=== PATIENT | female | born 1955 | race Caucasian/White ===

== ENCOUNTER → 2019-03-02 13:18 | Outpatient (CLI) | payer SELFPAY | PROVIDERS: PCP Family Medicine; Referring Provider Family Medicine; Visit Provider Family Medicine | DX: S91.001A Unspecified open wound, right ankle, initial encounter (principal); D70.8 Other neutropenia; D69.6 Thrombocytopenia, unspecified; K74.60 Unspecified cirrhosis of liver; Z91.120 Patient's intentional underdosing of medication regimen due to financial hardship | CPT/HCPCS: 11042; 87070; 87075; 87077; 87186; 87205; 99203; 99214 ==

== ENCOUNTER 2019-03-10 11:29 | Emergency (ER) | payer SELFPAY ==
[2019-03-10 11:41] VITALS: BP 114/71; PULSE 85; RESP 18; TEMP 37.1; O2SAT 99; BMI 19.7
[2019-03-10 12:09] VITALS: BP 125/106; PULSE 72; RESP 100; TEMP 37; O2SAT 72
--- NOTE | 2019-03-10 12:13 | ED_ITS ---
HPI - Syncope General Chief Complaint: Syncope Stated Complaint: syncopal episode Time Seen by Provider: 03/10/19 12:10 Source: patient Mode of arrival: Ambulatory Limitations: no limitations History of Present Illness HPI narrative: Patient is a 63-year-old female with history of neutropenia who presents after 2 syncopal episodes. She is currently being treated by wound care for a wound on her right leg which is multi-drug resistant. She was started on moxifloxacin 2 days ago. She says since them she passed out twice once yesterday and once today. She says today she was standing at the sink getting a glass of water she is not sure how but she woke up on the floor. She is unsure how long she was out for a long she was on the ground for. She denies any chest pain or palpitations or shortness of breath. Related Data Home Medications Medication Instructions Recorded Confirmed hydrocodone-acetaminophen 1 - 2 tab PO Q4-6H PRN 03/10/19 sulfamethoxazole-trimethoprim 1 tab PO BIDX10 03/10/19 03/10/19 Previous Rx's Medication Instructions Recorded ampicillin 500 mg PO QID #30 cap 03/10/19 rifampin 600 mg PO DAILY #7 cap 03/10/19 Allergies Allergy/AdvReac Type Severity Reaction Status Date / Time No Known Drug Allergies Allergy Verified 03/10/19 11:39 Review of Systems Review of Systems ROS Unobtainable: All systems reviewed & are unremarkable except as noted in HPI and below Constitutional Constitutional: Denies chills, Denies fever(s), Denies lethargy and Denies weakness Cardiovascular Cardiovascular: Reports as per HPI, Reports syncope, Denies dyspnea and Denies dyspnea on exertion Respiratory Respiratory: Denies cough, Denies dyspnea, Denies dyspnea on exertion and Denies wheezing Gastrointestinal Gastrointestinal: Denies abdominal pain, Denies change in bowel habits, Denies diarrhea, Denies nausea and Denies vomiting Genitourinary Genitourinary: Denies hematuria, Denies flank pain, Denies urinary incontinence and Denies urinary urgency Musculoskeletal Musculoskeletal: Denies back pain, Denies muscle weakness, Denies numbness and Denies tingling Integumentary/Breasts Skin/Breast: Reports as per HPI, Denies pruritus, Denies erythema, Denies rash and Reports wounds Neurologic Neurologic: Reports syncope, Denies numbness, Denies tingling and Denies weakness Allergic/Immunologic Allergic/Immunologic: Denies wheezing Patient History Substance Use Type: does not use Exam Initial Vital Signs Initial Vital Signs: Vital Signs Temperature 98.8 F 03/10/19 11:41 Pulse Rate 85 03/10/19 11:41 Respiratory Rate 18 03/10/19 11:41 Blood Pressure 114/71 03/10/19 11:41 Pulse Oximetry 99 03/10/19 11:41 GENERAL: Well-appearing, well-nourished and in no acute distress. HEENT: Head atraumatic,EOMI, pupils reactive, face symmetric CARDIOVASCULAR: Regular rate and rhythm without murmurs, rubs or gallops. RESPIRATORY: Breath sounds equal bilaterally, no wheezes rales or rhonchi. ABDOMEN: Soft, nontender. Normoactive bowel sounds all 4 quadrants. No guarding or rebound. EXTREMITIES: Normal range of motion, no clubbing or edema. Neurovascularly intact NEUROLOGICAL: Alert and oriented x4.Normal gait and speech. Cranial nerves II through XII grossly intact. SKIN: Wound noted on right lower leg clean bandage no significant drainage is no streaking no foul smell Course Orders Ordered: ED Orders 03/10/19 11:56 EKG-12 Lead Stat 03/10/19 12:16 Complete Blood Count AUTO DIFF Stat Comprehensive Metabolic Panel Stat Procalcitonin Stat Troponin & CK Cardiac Panel Stat Discontinued Medications Sodium Chloride (Normal Saline 0.9%) 1,000 mls @ 1,000 mls/hr IV BOLUS ONE Stop: 03/10/19 13:18 Last Infusion: 03/10/19 13:50 Dose: 0 mls/hr Documented by: Admin: 03/10/19 13:22 Dose: 1,000 mls/hr Documented by: CPRUITT Vital Signs Vital signs: Vital Signs - 8 hr 03/10/19 11:41 03/10/19 12:09 03/10/19 13:06 Temperature 98.8 F 98.6 F Pulse Rate 85 72 53 L Respiratory Rate 18 100 H 13 Blood Pressure 114/71 Blood Pressure [Right Arm] 125/106 H 138/70 Pulse Oximetry 99 72 L 100 MDM - Syncope Lab Data Attestation: I reviewed the patient's lab results. Result diagrams: 03/10/19 12:16 10/18/19 12:16 Labs: Lab Results 03/10/19 03/10/19 03/10/19 Range/Units 12:16 12:16 12:16 WBC 1.2 L* (4.5-11.0) X10^3/uL RBC 4.42 (4.0-5.2) X10^6/uL Hgb 14.1 (12.0-16.0) g/dL Hct 40.1 (36-46) % MCV 90.8 (80-100) fL MCH 32.0 (26-34) PG MCHC 35.2 (30-36) % RDW 13.9 (11.6-14.8) % Plt Count 148 L (150-400) X10^3/uL Neut % (Auto) Not Reportable Lymph % (Auto) Not Reportable [place] % (Auto) Not Reportable Eos % (Auto) Not Reportable Baso % (Auto) Not Reportable Lymph # (Auto) Not Reportable [place] # (Auto) Not Reportable Baso # (Auto) Not Reportable Total Counted 100 Seg Neutrophils % 24.0 L (38-70) % Band Neutrophils % 8.0 H (3-7) % Lymphocytes % (Manual) 52.0 H (25-45) % Atypical Lymphs % 1.0 H ( - 0) % Monocytes % (Manual) 15.0 H (2-11) % Neutrophils # (Manual) 384 L (8670-4393) /uL Plt Morphology Comment RBC Morphology Normal morphology Sodium 137 (137-145) mmol/L Potassium 3.4 (3.4-5.1) mmol/L Chloride 99 (98-107) mmol/L Carbon Dioxide 26 (22-32) mmol/L BUN 13 (7-17) mg/dL Creatinine 0.60 (0.52-1.04) mg/dL Estimated GFR > 60.0 (>60) mL/min BUN/Creatinine Ratio 21.7 (6-22) Glucose 99 (80-110) mg/dL Calcium 9.3 (8.4-10.2) mg/dL Total Bilirubin 1.0 (0.2-1.3) mg/dL AST 52 H (14-36) IU/L ALT 22 (9-52) IU/L Alkaline Phosphatase 115 (38-126) U/L Total Creatine Kinase 56 (30-135) U/L CK-MB (CK-2) TNP CK-MB (CK-2) Rel Index TNP Troponin I < 0.012 (0.01-0.034) ng/mL Total Protein 8.3 H (6.3-8.2) g/dL Albumin 4.9 (3.5-5.0) g/dL Globulin 3.4 (1.7-4.1) g/dL Albumin/Globulin Ratio 1.4 (1.0-2.8) Procalcitonin 0.05 (<0.5) ng/mL MDM Narrative Medical decision making narrative: Patient overall does not appear septic, she is neutropenic she says she is always neutropenic. She is afebrile she is negative procalcitonin the wound does not appear grossly infected. Wound cultur e from earlier does show multi-drug resistance. Due to her neutropenia she cannot be on linezolid, which would cover both. 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 Discharge Plan Departure Patient Disposition: Home Clinical Impression: Syncope Qualifiers: Syncope type: vasovagal syncope Qualified Code(s): R55 - Syncope and collapse Leg wound, right Qualifiers: Encounter type: initial encounter Qualified Code(s): S81.801A - Unspecified open wound, right lower leg, initial encounter Discharge Date/Time: 03/10/19 13:55 Instructions: DI for Syncope in Adults (Fainting) Activity Restrictions/Additional Instructions: *You have been diagnosed with syncope and right leg wound *What to do: Increase fluid intake. Passing out may be due to decreased oral intake and antibiotics. *Continue to take medications as directed Stop taking moxifloxacin Start taking ampicillin 500 mg 4 times a day for 7 days rifampin 600 mg once a day for 7 days *Follow up with your primary care provider in 2-3 days, follow up with wound care please call to schedule an appointment *Return to ER if you should have increasing redness drainage, pus, passing out chest pain heart palpitations or any new, worsening or concerning symptoms Prescriptions: New ampicillin 500 mg capsule 500 mg PO QID Qty: 30 RF: 0 rifampin 300 mg capsule 600 mg PO DAILY Qty: 7 RF: 0 No Action hydrocodone-acetaminophen 5-325 mg tablet 1 - 2 tab PO Q4-6H PRN (Reason: pain) RF: 0 sulfamethoxazole-trimethoprim 800-160 mg tablet 1 tab PO BIDX10 RF: 0 Referrals: Haim Meza MD [Physician] - Nir Dumont MD [Primary Care Provider] -
[2019-03-10 12:23] LABS: Hematocrit 40.1 % (36-46); Hemoglobin 14.1 g/dL (12.0-16.0); Mean Corpuscular HGB Conc 35.2 % (30-36); Mean Corpuscular Volume 90.8 fL (80-100); Platelet Count 148 X10^3/uL (150-400); Red Blood Cell Count 4.42 X10^6/uL (4.0-5.2); Red Cell Distribution Width 13.9 % (11.6-14.8)
[2019-03-10 12:27] LABS: Add Manual Diff / Slide Review YES; White Blood Cell Count 1.2 X10^3/uL (4.5-11.0)
[2019-03-10 12:35] LABS: Alanine Aminotransferase 22 IU/L (9-52); Albumin 4.9 g/dL (3.5-5.0); Albumin Globulin Ratio 1.4 (1.0-2.8); Alkaline Phosphatase 115 U/L (38-126); Aspartate Aminotransferase 52 IU/L (14-36); BUN Creatinine Ratio 21.7 (6-22); Blood Urea Nitrogen 13 mg/dL (7-17); Calcium 9.3 mg/dL (8.4-10.2); Carbon Dioxide 26 mmol/L (22-32); Chloride 99 mmol/L (98-107); Creatine Kinase 56 U/L (30-135); Estimated Glomerular Filt Rate > 60.0 mL/min (>60); Globulin 3.4 g/dL (1.7-4.1); Glucose 99 mg/dL (80-110); HEMOLYSIS < 15 (0-50); Potassium 3.4 mmol/L (3.4-5.1); Sodium 137 mmol/L (137-145); Total Protein 8.3 g/dL (6.3-8.2)
[2019-03-10 12:46] LABS: Troponin I < 0.012 ng/mL (0.01-0.034)
[2019-03-10 13:02] LABS: Procalcitonin 0.05 ng/mL (<0.5)
[2019-03-10 13:06] VITALS: BP 138/70; PULSE 53; RESP 13; O2SAT 100
[2019-03-10 13:20] LABS: Neutrophils Absolute Manual 384 /uL (3000-5900); RBC Morphology Normal Morphology; Total Cells Counted 100
[2019-03-10] MEDS: SODIUM CHLORIDE 0.9% 1,000 ML 1000 ML IV (13:22)
== END 2019-03-10 13:55 | disposition home or self-care (01) ==
PROVIDERS: Emergency Provider Emergency Medicine; PCP Family Medicine
DX: S81.801A Unspecified open wound, right lower leg, initial encounter (principal); R55 Syncope and collapse
CPT/HCPCS: 36415; 80053; 82550; 84145; 84484; 85025; 93005; 99283; 99284

== ENCOUNTER → 2019-03-10 13:36 | Outpatient (CLI) | payer SELFPAY | PROVIDERS: PCP Family Medicine; Visit Provider Family Medicine | CPT/HCPCS: 99213 ==

== ENCOUNTER → 2019-03-17 14:18 | Outpatient (CLI) | payer SELFPAY | PROVIDERS: PCP Family Medicine; Visit Provider Family Medicine | DX: S91.001A Unspecified open wound, right ankle, initial encounter (principal); D70.8 Other neutropenia; K74.60 Unspecified cirrhosis of liver; Z91.120 Patient's intentional underdosing of medication regimen due to financial hardship | CPT/HCPCS: 87070; 87075; 87077; 87147; 87185; 87186; 87205; 97597 ==

== ENCOUNTER → 2019-03-24 13:00 | Outpatient (CLI) | payer SELFPAY | PROVIDERS: PCP Family Medicine; Visit Provider Family Medicine | DX: S91.001A Unspecified open wound, right ankle, initial encounter (principal); D70.8 Other neutropenia; D69.6 Thrombocytopenia, unspecified; B95.2 Enterococcus as the cause of diseases classified elsewhere; K74.60 Unspecified cirrhosis of liver; L08.9 Local infection of the skin and subcutaneous tissue, unspecified; Z91.120 Patient's intentional underdosing of medication regimen due to financial hardship | CPT/HCPCS: 97597; 99213 ==

== ENCOUNTER → 2019-03-31 10:42 | Outpatient (CLI) | payer SELFPAY | PROVIDERS: PCP Family Medicine; Visit Provider Family Medicine | DX: S91.001A Unspecified open wound, right ankle, initial encounter (principal); D70.8 Other neutropenia; D69.6 Thrombocytopenia, unspecified; B95.2 Enterococcus as the cause of diseases classified elsewhere; L08.9 Local infection of the skin and subcutaneous tissue, unspecified; K74.60 Unspecified cirrhosis of liver; Z91.120 Patient's intentional underdosing of medication regimen due to financial hardship | CPT/HCPCS: 11042 ==

== ENCOUNTER → 2019-04-07 14:18 | Outpatient (CLI) | payer SELFPAY | PROVIDERS: PCP Family Medicine; Visit Provider Family Medicine | DX: S91.001A Unspecified open wound, right ankle, initial encounter (principal); D70.8 Other neutropenia; B95.2 Enterococcus as the cause of diseases classified elsewhere; L08.9 Local infection of the skin and subcutaneous tissue, unspecified; D69.6 Thrombocytopenia, unspecified; Z91.120 Patient's intentional underdosing of medication regimen due to financial hardship; K74.60 Unspecified cirrhosis of liver | CPT/HCPCS: 11104; 87070; 87075; 87077; 87102; 87116; 87186; 87205 ==

== ENCOUNTER → 2019-04-14 11:49 | Outpatient (CLI) | payer SELFPAY | PROVIDERS: PCP Family Medicine; Visit Provider Family Medicine | DX: S91.001A Unspecified open wound, right ankle, initial encounter (principal); D70.8 Other neutropenia; D69.6 Thrombocytopenia, unspecified; L08.9 Local infection of the skin and subcutaneous tissue, unspecified; B95.2 Enterococcus as the cause of diseases classified elsewhere; K74.60 Unspecified cirrhosis of liver; Z91.120 Patient's intentional underdosing of medication regimen due to financial hardship | CPT/HCPCS: 11042; 99213 ==

== ENCOUNTER → 2019-04-28 11:10 | Outpatient (CLI) | payer SELFPAY | PROVIDERS: PCP Family Medicine; Visit Provider Family Medicine | DX: S91.001A Unspecified open wound, right ankle, initial encounter (principal); D70.8 Other neutropenia; D69.6 Thrombocytopenia, unspecified; L08.9 Local infection of the skin and subcutaneous tissue, unspecified; B95.2 Enterococcus as the cause of diseases classified elsewhere; Z91.120 Patient's intentional underdosing of medication regimen due to financial hardship | CPT/HCPCS: 11042 ==

== ENCOUNTER → 2020-11-27 14:11 | Outpatient (CLI) | payer OTHER, SELFPAY ==
[2020-11-27 15:00] LABS: Hemoglobin A1C% w Est Avg Glu 5.7 % (4.0-6.0)
[2020-11-27 15:08] LABS: Hematocrit 41.4 % (36-46); Hemoglobin 14.2 g/dL (12.0-16.0); Mean Corpuscular HGB Conc 34.2 % (30-36); Mean Corpuscular Hemoglobin 32.8 PG (26-34); Mean Corpuscular Volume 95.9 fL (80-100); Platelet Count 182 X10^3/uL (150-400); Red Blood Cell Count 4.32 X10^6/uL (4.0-5.2); Red Cell Distribution Width 15.4 % (11.6-14.8)
[2020-11-27 15:54] LABS: Alanine Aminotransferase 16 IU/L (<35); Albumin 4.6 g/dL (3.5-5.0); Albumin Globulin Ratio 1.8 (1.0-2.8); Alkaline Phosphatase 60 U/L (38-126); Aspartate Aminotransferase 40 IU/L (14-36); BUN Creatinine Ratio 12.7 (6-22); Bilirubin Total 0.9 mg/dL (0.2-1.3); Blood Urea Nitrogen 8 mg/dL (7-17); Carbon Dioxide 29 mmol/L (22-32); Chloride 102 mmol/L (98-107); Estimated Glomerular Filt Rate > 60.0 mL/min (>60); Globulin 2.5 g/dL (1.7-4.1); Glucose 179 mg/dL (80-110); HEMOLYSIS 20 (0-50); Potassium 4.4 mmol/L (3.4-5.1); Sodium 138 mmol/L (137-145); Total Protein 7.1 g/dL (6.3-8.2)
[2020-11-27 16:07] LABS: Add Manual Diff / Slide Review YES; White Blood Cell Count 1.7 X10^3/uL (4.5-11.0)
[2020-11-27 16:08] LABS: Neutrophils Absolute Manual 1156 /uL (3000-5900); RBC Morphology Normal Morphology; Total Cells Counted 100
== END ==
PROVIDERS: Referring Provider Family Medicine; Visit Provider Family Medicine
DX: L88 Pyoderma gangrenosum (principal); R73.9 Hyperglycemia, unspecified
CPT/HCPCS: 36415; 80053; 83036; 85007; 85025

== ENCOUNTER → 2020-12-05 11:03 | Outpatient (CLI) | payer OTHER, SELFPAY ==
[2020-12-05 20:05] LABS: Hemoglobin A1C% w Est Avg Glu 5.5 % (4.0-6.0)
[2020-12-05 20:24] LABS: BUN Creatinine Ratio 15.8 (6-22); Blood Urea Nitrogen 9 mg/dL (7-17); Calcium 9.4 mg/dL (8.4-10.2); Carbon Dioxide 26 mmol/L (22-32); Chloride 105 mmol/L (98-107); Estimated Glomerular Filt Rate > 60.0 mL/min (>60); Glucose 120 mg/dL (80-110); HEMOLYSIS < 15 (0-50); Potassium 4.2 mmol/L (3.4-5.1); Sodium 138 mmol/L (137-145)
== END ==
PROVIDERS: PCP Family Medicine; Visit Provider Family Medicine
DX: R73.9 Hyperglycemia, unspecified (principal)
CPT/HCPCS: 80048; 83036

== ENCOUNTER → 2020-12-10 11:30 | Outpatient (CLI) | payer OTHER, SELFPAY ==
[2020-12-10 20:21] LABS: COVID19 - ORCAS (NP or Nasal) Negative (Negative)
== END ==
PROVIDERS: PCP Family Medicine; Visit Provider Family Medicine
DX: Z20.822 Contact with and (suspected) exposure to COVID-19 (principal)
CPT/HCPCS: U0003

== ENCOUNTER → 2021-01-02 10:51 | Outpatient (CLI) | payer OTHER, SELFPAY ==
[2021-01-02 20:32] LABS: COVID19 - ORCAS (NP or Nasal) Negative (Negative)
== END ==
PROVIDERS: PCP Family Medicine; Visit Provider Family Medicine
DX: Z20.822 Contact with and (suspected) exposure to COVID-19 (principal); J02.9 Acute pharyngitis, unspecified
CPT/HCPCS: U0003

== ENCOUNTER → 2021-02-07 09:34 | Outpatient (CLI) | payer OTHER, SELFPAY ==
[2021-02-07 20:09] LABS: Appearance Urine UA CLEAR; Bilirubin Urine UA NEGATIVE (NEGATIVE); Color Urine UA YELLOW; Glucose Urine UA NEGATIVE (Negative); Ketones Urine UA NEGATIVE (NEGATIVE); Leukocyte Esterase Urine UA NEGATIVE (NEGATIVE); Nitrite Urine UA NEGATIVE (Negative); Occult Blood Urine UA NEGATIVE (Negative); Protein Urine UA NEGATIVE (Negative)
[2021-02-07 20:12] LABS: pH Urine UA 7.5 (4.5-8.0)
[2021-02-07 20:14] LABS: RBC Urine None Seen (0-5/HPF)
[2021-02-07 20:15] LABS: Bacteria Urine None Seen; Culture Indicated Urine Cult Not Indicated; Squamous Epithelial Cell Urine 0-1 /HPF (0-5/HPF); WBC Urine 0-1/HPF (0-5/HPF)
[2021-02-07 20:16] LABS: Hematocrit 40.7 % (36-46); Hemoglobin 13.7 g/dL (12.0-16.0); Mean Corpuscular HGB Conc 33.6 % (30-36); Mean Corpuscular Hemoglobin 30.8 PG (26-34); Mean Corpuscular Volume 91.6 fL (80-100); Platelet Count 191 X10^3/uL (150-400); Red Blood Cell Count 4.45 X10^6/uL (4.0-5.2)
[2021-02-07 20:20] LABS: Alanine Aminotransferase 14 IU/L (<35); Albumin 4.2 g/dL (3.5-5.0); Albumin Globulin Ratio 1.8 (1.0-2.8); Alkaline Phosphatase 91 U/L (38-126); Aspartate Aminotransferase 35 IU/L (14-36); BUN Creatinine Ratio 20.4 (6-22); Bilirubin Total 0.8 mg/dL (0.2-1.3); Blood Urea Nitrogen 11 mg/dL (7-17); Calcium 9.1 mg/dL (8.4-10.2); Carbon Dioxide 28 mmol/L (22-32); Chloride 105 mmol/L (98-107); Estimated Glomerular Filt Rate > 60.0 mL/min (>60); Globulin 2.4 g/dL (1.7-4.1); Glucose 111 mg/dL (80-110); HEMOLYSIS < 15 (0-50); Potassium 4.4 mmol/L (3.4-5.1); Sodium 139 mmol/L (137-145); Total Protein 6.6 g/dL (6.3-8.2)
[2021-02-07 20:43] LABS: Erythrocyte Sedimentation Rate 10 MM/HR (0-20)
[2021-02-07 22:07] LABS: Add Manual Diff / Slide Review YES; White Blood Cell Count 1.7 X10^3/uL (4.5-11.0)
[2021-02-07 22:10] LABS: Neutrophils Absolute Manual 374 /uL (3000-5900); RBC Morphology Normal Morphology; Total Cells Counted 100
== END ==
PROVIDERS: PCP Family Medicine; Visit Provider Family Medicine
DX: M54.6 Pain in thoracic spine (principal)
CPT/HCPCS: 80053; 81001; 85007; 85025; 85651

== ENCOUNTER → 2021-02-20 08:52 | Outpatient (CLI) | payer OTHER, SELFPAY ==
[2021-02-20 09:36] LABS: COVID19 -Nasal RAPID Negative (Negative)
== END ==
PROVIDERS: PCP Family Medicine; Referring Provider Internal Medicine; Visit Provider Internal Medicine
DX: Z01.812 Encounter for preprocedural laboratory examination (principal); Z20.822 Contact with and (suspected) exposure to COVID-19
CPT/HCPCS: 87635; C9803

== ENCOUNTER → 2021-02-20 08:55 | Outpatient (CLI) | payer OTHER, SELFPAY ==
--- NOTE | 2021-02-26 09:48 | PM.PFT.1 ---
Pulmonary Function Test Referral & Results Date Patient Seen: 02/20/21 Requesting provider: Yassine Cook Results: The spirometry demonstrates an FVC of 2.65 L which is 68% of predicted. The FEV1 was measured at 2.05 L which is 69% of predicted. The FEV1/FVC ratio was 77 which is 100% of predicted. Following the administration of bronchodilator there was no appreciable change Lung volumes show an SVC of 2.65 L which is 75% of predicted. The diffusing capacity was measured at 19.60 which is 63% of predicted. No hemoglobin value was provided, so no correction for potential anemia could be made, if appropriate. The maximum voluntary ventilation was reduced Interpretation: This study demonstrates slight reduction in FEV1 suggesting the possibility of minimal obstructive lung disease although FEV1/FVC ratio is normal and there is no evidence of benefit following bronchodilator There is also a slight/mild reduction of SVC suggesting the presence of minimal restrictive lung disease which may explain the abnormality in FEV1 above. There is a more significant reduction diffusing capacity suggesting disease at the capillary alveolar level Clinical correlation suggested
== END ==
PROVIDERS: PCP Family Medicine; Referring Provider Family Medicine; Visit Provider Family Medicine
DX: J98.8 Other specified respiratory disorders (principal); T73.3XXA Exhaustion due to excessive exertion, initial encounter
CPT/HCPCS: 94060; 94726; 94729

== ENCOUNTER → 2021-02-20 12:26 | Outpatient (CLI) | payer OTHER, SELFPAY ==
--- NOTE | 2021-02-20 12:35 | DI.CT.S_ITS ---
PROCEDURE: CT ANGIO CHEST INDICATIONS: Past history of recent pulmonary embolism, remains with SOB TECHNIQUE: After the administration of intravenous contrast, 2 mm thick sections acquired from the pulmonary apices to the posterior costophrenic angles. Maximum intensity projection (MIP) coronal and sagittal reformats were then acquired through the thorax. For radiation dose reduction, the following was used: automated exposure control, adjustment of mA and/or kV according to patient size. COMPARISON: None. FINDINGS: Image quality: Excellent. Pulmonary arteries: Pulmonary arteries are normal in size, and demonstrate no intraluminal filling defects to suggest central pulmonary embolism. Lungs and pleura: Lungs are clear. No pleural effusions or pneumothorax. Central and peripheral airways are patent. Mediastinum: Heart size is normal, without pericardial effusion. No mediastinal or hilar adenopathy. Thoracic aorta is normal in caliber and enhancement. Esophagus is normal in caliber, without hiatal hernia. Bones and chest wall: No suspicious bony lesions. Ribs and thoracic spine appear intact throughout. Thyroid gland unremarkable. No axillary or supraclavicular adenopathy. Abdomen: Visualized upper abdominal solid organs appear normal in the early arterial phase of enhancement. IMPRESSION: Unremarkable CT angiogram of the chest without evidence of pulmonary embolism, aortic dissection or aneurysm. Approved by: Frankie Arita M.D. on 02/20/2021 at 12:33
== END ==
PROVIDERS: PCP Family Medicine; Referring Provider Family Medicine; Visit Provider Family Medicine
DX: I27.82 Chronic pulmonary embolism (principal); E88.01 Alpha-1-antitrypsin deficiency; R06.00 Dyspnea, unspecified; R06.02 Shortness of breath; Z20.822 Contact with and (suspected) exposure to COVID-19; Z01.812 Encounter for preprocedural laboratory examination; T73.3XXA Exhaustion due to excessive exertion, initial encounter
CPT/HCPCS: 71275; 87635; 94060; 94726; 94729; C9803

== ENCOUNTER 2021-03-01 10:53 | Emergency (ER) | payer OTHER, SELFPAY ==
[2021-03-01 11:32] VITALS: PULSE 69; RESP 18; O2SAT 97
[2021-03-01 11:33] VITALS: BP 140/93; PULSE 69; RESP 18; TEMP 37; O2SAT 97
[2021-03-01 12:39] LABS: Add Manual Diff / Slide Review NO; Basophils Absolute Auto 0 /uL (0-100); Basophils Percent Auto 0.4 % (0-2); Eosinophils Absolute Auto 0 /uL (0-450); Hematocrit 42.1 % (36-46); Hemoglobin 14.4 g/dL (12.0-16.0); Lymphocytes Absolute Auto 800 /uL (1100-4500); Lymphocytes Percent Auto 40.9 % (25-40); Mean Corpuscular HGB Conc 34.2 % (30-36); Mean Corpuscular Hemoglobin 31.4 PG (26-34); Mean Corpuscular Volume 91.8 fL (80-100); Monocytes Absolute Auto 300 /uL (0-900); Monocytes Percent Auto 16.5 % (3-14); Neutrophils Absolute Auto 800 /uL (1500-7000); Neutrophils Percent Auto 42.2 % (50-75); Platelet Count 135 X10^3/uL (150-400); Red Blood Cell Count 4.58 X10^6/uL (4.0-5.2); Red Cell Distribution Width 14.9 % (11.6-14.8)
[2021-03-01 12:46] LABS: Alanine Aminotransferase 13 IU/L (<35); Albumin 4.8 g/dL (3.5-5.0); Albumin Globulin Ratio 1.8 (1.0-2.8); Alkaline Phosphatase 81 U/L (38-126); Aspartate Aminotransferase 35 IU/L (14-36); BUN Creatinine Ratio 15.7 (6-22); Blood Urea Nitrogen 8 mg/dL (7-17); Calcium 9.5 mg/dL (8.4-10.2); Carbon Dioxide 29 mmol/L (22-32); Chloride 103 mmol/L (98-107); Estimated Glomerular Filt Rate > 60.0 mL/min (>60); Globulin 2.6 g/dL (1.7-4.1); Glucose 123 mg/dL (80-110); HEMOLYSIS < 15 (0-50); Lactate (Lactic Acid) 0.8 mmol/L (0.7-2.1); Lipase 68 U/L (23-300); Sodium 138 mmol/L (137-145); Total Protein 7.4 g/dL (6.3-8.2)
--- NOTE | 2021-03-01 12:57 | ED.ABDPAIN ---
HPI - Abdominal Pain <Angel Gutierrez PA-C - Last Filed: 03/01/21 14:15> General Chief Complaint: Abdominal Pain Stated Complaint: Stomach pain x a week Time Seen by Provider: 03/01/21 12:00 Source: patient and family Mode of arrival: Ambulatory History of Present Illness HPI narrative: Kathy presents today with chief complaint of epigastric abdominal pain, cough, a.m. vomiting. She reports that she has been experiencing these symptoms for many months. Over the last week she has had increased frequency of her vomiting, loose stool, worsening cough. She was tested for COVID 2 weeks ago and that came back negative. She is not vaccinated at this time because she has been on immunosuppressive so for pyoderma gangrenosum. She is currently tapering down her prednisone and mycophenolate through her workcell operator at to help with the side effects. She reports that she has also been having an acidic taste in her throat and is concerned that she may either have lymphoma or a stomach ulcer. She denies any significant chest pain, fever, exertional dyspnea, increased difficulty breathing, or any other acute concerns or complaints at this time. Related Data Home Medications Medication Instructions Recorded Confirmed brimonidine 0.1 % eye drops drp OPHTHALMIC (EYE) DAILY ml 12/10/20 02/13/21 (Alphagan P) brimonidine 0.2 %-timolol 0.5 % drp OPHTHALMIC (EYE) BID ml 12/10/20 02/13/21 eye drops (Combigan) mycophenolate mofetil 500 mg tablet 500 mg PO BID 01/30/21 02/13/21 prednisone 1 mg tablet See Rx Instructions .ROUTE .COMPLEX 01/30/21 02/13/21 rivaroxaban 20 mg tablet (Xarelto) 20 mg PO DAILY 01/30/21 02/13/21 Previous Rx's Medication Instructions Recorded amoxicillin 875 mg-potassium 1 tab PO BID #10 tab 01/30/21 clavulanate 125 mg tablet (Augmentin) hydrocodone 5 mg-acetaminophen 325 1 tab PO TID PRN #30 tab 02/07/21 mg tablet methocarbamol 500 mg tablet 500 mg PO TID PRN #30 tab 02/07/21 Allergies Allergy/AdvReac Type Severity Reaction Status Date / Time silicone Allergy Mild Verified 02/13/21 15:05 latex AdvReac Intermediate Verified 02/13/21 15:05 Review of Systems <Angel Gutierrez PA-C - Last Filed: 03/01/21 14:15> Review of Systems Narrative: As per HPI Patient History <Angel Gutierrez PA-C - Last Filed: 03/01/21 14:15> Medical History (Updated 03/01/21 @ 13:06 by Angel Gutierrez PA-C) Dog bite Family history of colon cancer Family history of diabetes mellitus (DM) Neutropenia, unspecified Sore throat Thoracic back pain Surgical History (Updated 11/07/20 @ 19:43 by Rossi Ch) Anesthesia History of bone marrow biopsy History of surgery (~2019) S/P cholecystectomy (~2005) Family History (Updated 11/07/20 @ 19:43 by Rossi Ch) Mother Cancer Social History Smoking Status: Never smoker Smoking Status: Never smoker Substance Use Type: does not use Exam <Angel Gutierrez PA-C - Last Filed: 03/01/21 14:15> Narrative Exam Narrative: Exam Narrative: Const General: cooperative, healthy appearing, comfortable, no acute distress, well developed and well groomed Nutritional Appearance: average body habitus Orientation: alert and oriented x3 HENMT Head: normal to inspection and atraumatic Ears: hearing grossly normal bilaterally Nose: external nose normal and nares normal Face and sinus: normal facial exam Neck Neck: normal visual inspection and supple Resp Effort & Inspection: normal respiratory effort, able to speak in complete sentences, no audible wheezes, not labored, no nasal flaring and no respiratory distress, clear to auscultation bilaterally Cardiac Regular rate and rhythm, no discernible murmurs, rubs or gallops GI Nondistended, positive epigastric tenderness, negative Graff sign, no guarding, no rebound tenderness. Neuro General: alert, oriented x3, gait normal, tone normal and moves all extremities Cognition: normal cognition Speech: speech normal Gait: normal gait Psych Appearance: grossly normal and well kempt Mental Status: mental status grossly normal Speech and Movement: speech and movement normal Mood: Anxious mood Affect: normal affect Initial Vital Signs Initial Vital Signs: Vital Signs Pulse Rate 69 03/01/21 11:32 Respiratory Rate 18 03/01/21 11:32 Pulse Oximetry 97 03/01/21 11:32 <Charlene Lopez DO - Last Filed: 03/06/21 00:30> Initial Vital Signs Initial Vital Signs: Vital Signs Pulse Rate 69 03/01/21 11:32 Respiratory Rate 18 03/01/21 11:32 Pulse Oximetry 97 03/01/21 11:32 Course <Angel Gutierrez PA-C - Last Filed: 03/01/21 14:15> Course Course Narrative: Patient is adamant that she needs an ultrasound to diagnose a stomach ulcer. I explained that we do not use this imaging modality to diagnose stomach ulcers. Her physical examination and symptoms are consistent with acid reflux and possibly gastric ulcer. If symptoms continue then endoscopy may be needed. Orders Ordered: Discontinued Medications Pantoprazole Sodium (Pantoprazole 40 Mg Vial) 40 mg IV NOW ONE Stop: 03/01/21 12:57 Last Admin: 03/01/21 13:02 Dose: 40 mg Documented by: BARAK Vital Signs Vital signs: Vital Signs - 8 hr 03/01/21 11:32 03/01/21 11:33 Temperature 98.6 F Pulse Rate 69 69 Respiratory Rate 18 18 Blood Pressure [Right Arm] 140/93 H Pulse Oximetry 97 97 <Charlene Lopez DO - Last Filed: 03/06/21 00:30> Orders Ordered: Discontinued Medications Pantoprazole Sodium (Pantoprazole 40 Mg Vial) 40 mg IV NOW ONE Stop: 03/01/21 12:57 Last Admin: 03/01/21 13:02 Dose: 40 mg Documented by: BARAK Vital Signs Vital signs: Vital Signs - 8 hr 03/01/21 11:32 03/01/21 11:33 Temperature 98.6 F Pulse Rate 69 69 Respiratory Rate 18 18 Blood Pressure [Right Arm] 140/93 H Pulse Oximetry 97 97 MDM - Abdominal Pain <SHERYL Hatch Last Filed: 03/01/21 14:15> Lab Data Result diagrams: 03/01/21 12:30 03/01/21 12:30 Labs: Lab Results 03/01/21 03/01/21 03/01/21 Range/Units 12:30 12:30 12:30 WBC 2.0 L (4.5-11.0) X10^3/uL RBC 4.58 (4.0-5.2) X10^6/uL Hgb 14.4 (12.0-16.0) g/dL Hct 42.1 (36-46) % MCV 91.8 (80-100) fL MCH 31.4 (26-34) PG MCHC 34.2 (30-36) % RDW 14.9 H (11.6-14.8) % Plt Count 135 L (150-400) X10^3/uL Neut % (Auto) 42.2 L (50-75) % Lymph % (Auto) 40.9 H (25-40) % [place] % (Auto) 16.5 H (3-14) % Eos % (Auto) 0.0 L (2-4) % Baso % (Auto) 0.4 (0-2) % Neut # (Auto) 800 L (4829-6232) /uL Lymph # (Auto) 800 L (3645-3175) /uL [place] # (Auto) 300 (0-900) /uL Eos # (Auto) 0 (0-450) /uL Baso # (Auto) 0 (0-100) /uL Sodium 138 (137-145) mmol/L Potassium 4.0 (3.4-5.1) mmol/L Chloride 103 (98-107) mmol/L Carbon Dioxide 29 (22-32) mmol/L BUN 8 (7-17) mg/dL Creatinine 0.51 L (0.52-1.04) mg/dL Estimated GFR > 60.0 (>60) mL/min BUN/Creatinine Ratio 15.7 (6-22) Glucose 123 H (80-110) mg/dL Lactate 0.8 (0.7-2.1) mmol/L Calcium 9.5 (8.4-10.2) mg/dL Total Bilirubin 1.0 (0.2-1.3) mg/dL AST 35 (14-36) IU/L ALT 13 (<35) IU/L Alkaline Phosphatase 81 (38-126) U/L Total Protein 7.4 (6.3-8.2) g/dL Albumin 4.8 (3.5-5.0) g/dL Globulin 2.6 (1.7-4.1) g/dL Albumin/Globulin Ratio 1.8 (1.0-2.8) Lipase 68 (23-300) U/L Procalcitonin (<0.5) ng/mL SARS-CoV-2 (PCR) (Negative) 03/01/21 03/01/21 Range/Units 12:30 12:55 WBC (4.5-11.0) X10^3/uL RBC (4.0-5.2) X10^6/uL Hgb (12.0-16.0) g/dL Hct (36-46) % MCV (80-100) fL MCH (26-34) PG MCHC (30-36) % RDW (11.6-14.8) % Plt Count (150-400) X10^3/uL Neut % (Auto) (50-75) % Lymph % (Auto) (25-40) % [place] % (Auto) (3-14) % Eos % (Auto) (2-4) % Baso % (Auto) (0-2) % Neut # (Auto) (3943-8514) /uL Lymph # (Auto) (4864-2082) /uL [place] # (Auto) (0-900) /uL Eos # (Auto) (0-450) /uL Baso # (Auto) (0-100) /uL Sodium (137-145) mmol/L Potassium (3.4-5.1) mmol/L Chloride (98-107) mmol/L Carbon Dioxide (22-32) mmol/L BUN (7-17) mg/dL Creatinine (0.52-1.04) mg/dL Estimated GFR (>60) mL/min BUN/Creatinine Ratio (6-22) Glucose (80-110) mg/dL Lactate (0.7-2.1) mmol/L Calcium (8.4-10.2) mg/dL Total Bilirubin (0.2-1.3) mg/dL AST (14-36) IU/L ALT (<35) IU/L Alkaline Phosphatase (38-126) U/L Total Protein (6.3-8.2) g/dL Albumin (3.5-5.0) g/dL Globulin (1.7-4.1) g/dL Albumin/Globulin Ratio (1.0-2.8) Lipase (23-300) U/L Procalcitonin 0.07 (<0.5) ng/mL SARS-CoV-2 (PCR) Negative (Negative) Point of care testing: Urine Dip Bedside Urine Glucose Negative Bedside Urine Bilirubin - Negative Bedside Urine Ketone - Negative Urine Specific [place] 1.015 Bedside Urine Occult Blood - Negative Bedside Urine pH 6.5 Bedside Urine Protein - Negative Bedside Urine Urobilinogen - Negative Bedside Urine Nitrite - Negative Bedside Urine Leukocytes - Negative Esterase MDM Narrative Medical decision making narrative: Patient is overall well-appearing at this time and has reassuring labs that are consistent with her known medical conditions. Because her mycophenolate blood levels can be slightly reduced with PPI therapy, no prescription was given at this time. However, this is something that she should discuss with her PCP and workcell operator. I considered ACS or pulmonary problem but patient is not interested in getting an EKG or x-ray at this time. I recommended a more thorough evaluation but patient was needing to leave to catch a ferry so she can get back home and is refusing further care. History and physical examination does not suggest an acute life-threatening process at this time. However, strict ER return precautions were discussed with the patient. Patient verbalizes understanding and agrees to plan and has no further concerns at this time. Thank you A [id number] system was used with the dictation of this note. Please disregard any spelling or grammatical errors. <Charlene Lopez, DO - Last Filed: 03/06/21 00:30> Lab Data Labs: Lab Results 03/01/21 03/01/21 03/01/21 Range/Units 12:30 12:30 12:30 WBC 2.0 L (4.5-11.0) X10^3/uL RBC 4.58 (4.0-5.2) X10^6/uL Hgb 14.4 (12.0-16.0) g/dL Hct 42.1 (36-46) % MCV 91.8 (80-100) fL MCH 31.4 (26-34) PG MCHC 34.2 (30-36) % RDW 14.9 H (11.6-14.8) % Plt Count 135 L (150-400) X10^3/uL Neut % (Auto) 42.2 L (50-75) % Lymph % (Auto) 40.9 H (25-40) % [place] % (Auto) 16.5 H (3-14) % Eos % (Auto) 0.0 L (2-4) % Baso % (Auto) 0.4 (0-2) % Neut # (Auto) 800 L (7692-1553) /uL Lymph # (Auto) 800 L (7994-5897) /uL [place] # (Auto) 300 (0-900) /uL Eos # (Auto) 0 (0-450) /uL Baso # (Auto) 0 (0-100) /uL Sodium 138 (137-145) mmol/L Potassium 4.0 (3.4-5.1) mmol/L Chloride 103 (98-107) mmol/L Carbon Dioxide 29 (22-32) mmol/L BUN 8 (7-17) mg/dL Creatinine 0.51 L (0.52-1.04) mg/dL Estimated GFR > 60.0 (>60) mL/min BUN/Creatinine Ratio 15.7 (6-22) Glucose 123 H (80-110) mg/dL Lactate 0.8 (0.7-2.1) mmol/L Calcium 9.5 (8.4-10.2) mg/dL Total Bilirubin 1.0 (0.2-1.3) mg/dL AST 35 (14-36) IU/L ALT 13 (<35) IU/L Alkaline Phosphatase 81 (38-126) U/L Total Protein 7.4 (6.3-8.2) g/dL Albumin 4.8 (3.5-5.0) g/dL Globulin 2.6 (1.7-4.1) g/dL Albumin/Globulin Ratio 1.8 (1.0-2.8) Lipase 68 (23-300) U/L Procalcitonin (<0.5) ng/mL SARS-CoV-2 (PCR) (Negative) 03/01/21 03/01/21 Range/Units 12:30 12:55 WBC (4.5-11.0) X10^3/uL RBC (4.0-5.2) X10^6/uL Hgb (12.0-16.0) g/dL Hct (36-46) % MCV (80-100) fL MCH (26-34) PG MCHC (30-36) % RDW (11.6-14.8) % Plt Count (150-400) X10^3/uL Neut % (Auto) (50-75) % Lymph % (Auto) (25-40) % [place] % (Auto) (3-14) % Eos % (Auto) (2-4) % Baso % (Auto) (0-2) % Neut # (Auto) (3242-5127) /uL Lymph # (Auto) (0895-7640) /uL [place] # (Auto) (0-900) /uL Eos # (Auto) (0-450) /uL Baso # (Auto) (0-100) /uL Sodium (137-145) mmol/L Potassium (3.4-5.1) mmol/L Chloride (98-107) mmol/L Carbon Dioxide (22-32) mmol/L BUN (7-17) mg/dL Creatinine (0.52-1.04) mg/dL Estimated GFR (>60) mL/min BUN/Creatinine Ratio (6-22) Glucose (80-110) mg/dL Lactate (0.7-2.1) mmol/L Calcium (8.4-10.2) mg/dL Total Bilirubin (0.2-1.3) mg/dL AST (14-36) IU/L ALT (<35) IU/L Alkaline Phosphatase (38-126) U/L Total Protein (6.3-8.2) g/dL Albumin (3.5-5.0) g/dL Globulin (1.7-4.1) g/dL Albumin/Globulin Ratio (1.0-2.8) Lipase (23-300) U/L Procalcitonin 0.07 (<0.5) ng/mL SARS-CoV-2 (PCR) Negative (Negative) Point of care testing: Urine Dip Bedside Urine Glucose Negative Bedside Urine Bilirubin - Negative Bedside Urine Ketone - Negative Urine Specific [place] 1.015 Bedside Urine Occult Blood - Negative Bedside Urine pH 6.5 Bedside Urine Protein - Negative Bedside Urine Urobilinogen - Negative Bedside Urine Nitrite - Negative Bedside Urine Leukocytes - Negative Esterase Discharge Plan Departure Patient Disposition: Home Clinical Impression: Abdominal pain, epigastric Instructions: DI for Epigastric Pain Activity Restrictions/Additional Instructions: It was nice to meet you this afternoon. Your laboratory work was reassuring at this time. Please call your PCP and see if there is some medication that you can take to treat a possible stomach ulcer. The PPI therapy can potentially decrease the effectiveness of your mycophenolate so please discuss that with your workcell operator also. If you experience any significant worsening symptoms do not hesitate return to the emergency department. Thank you Angel Gutierrez PA-C Prescriptions: No Action Alphagan P 0.1 % drops ophthalmic (eye) DAILY RF: 0 Combigan 0.2-0.5 % drops ophthalmic (eye) BID RF: 0 hydrocodone-acetaminophen 5-325 mg tablet 1 tab PO TID PRN (Reason: pain) Qty: 30 RF: 0 methocarbamol 500 mg tablet 500 mg PO TID PRN (Reason: Muscle strain) Qty: 30 RF: 0 mycophenolate mofetil 500 mg tablet 500 mg PO BID RF: 0 Xarelto 20 mg tablet 20 mg PO DAILY RF: 0 prednisone 1 mg tablet See Rx Instructions .ROUTE .COMPLEX RF: 0 amoxicillin-pot clavulanate [Augmentin] 875-125 mg tablet 1 tab PO BID Qty: 10 RF: 0 Referrals: Yassine Cook DO [Primary Care Provider] - <Charlene Lopez DO - Last Filed: 03/06/21 00:30> Cosign ED Attending Germanature Attestation: I was immediately available in the department for consultation. Documentation has been reviewed.
[2021-03-01] MEDS: PANTOPRAZOLE 40 MG VIAL IV (13:02)
[2021-03-01 13:03] LABS: Procalcitonin 0.07 ng/mL (<0.5)
--- NOTE | 2021-03-01 13:06 | PC.NURSE ---
Patient declined nursing assessment and asked to be discharged after speaking to provider. Notified provider.
[2021-03-01 13:42] LABS: COVID19 -Nasal RAPID Negative (Negative)
== END 2021-03-01 13:42 | disposition home or self-care (01) ==
PROVIDERS: Emergency Medicine; Emergency Provider Physician Assistant; PCP Family Medicine
DX: R10.13 Epigastric pain (principal); Z20.822 Contact with and (suspected) exposure to COVID-19
CPT/HCPCS: 80053; 81003; 83605; 83690; 84145; 85025; 87635; 96374; 99283; 99284; C9803; C9113

== ENCOUNTER → 2021-03-28 08:10 | Outpatient (CLI) | payer OTHER, SELFPAY ==
[2021-03-28 19:33] LABS: Hematocrit 39.8 % (36-46); Hemoglobin 13.8 g/dL (12.0-16.0); Mean Corpuscular HGB Conc 34.7 % (30-36); Mean Corpuscular Hemoglobin 31.6 PG (26-34); Mean Corpuscular Volume 91.2 fL (80-100); Platelet Count 203 X10^3/uL (150-400); Red Blood Cell Count 4.36 X10^6/uL (4.0-5.2); Red Cell Distribution Width 14.9 % (11.6-14.8)
[2021-03-28 19:41] LABS: Alanine Aminotransferase 13 IU/L (<35); Albumin Globulin Ratio 1.6 (1.0-2.8); Alkaline Phosphatase 105 U/L (38-126); Aspartate Aminotransferase 33 IU/L (14-36); BUN Creatinine Ratio 18.2 (6-22); Bilirubin Total 0.5 mg/dL (0.2-1.3); Blood Urea Nitrogen 10 mg/dL (7-17); Calcium 9.7 mg/dL (8.4-10.2); Carbon Dioxide 29 mmol/L (22-32); Chloride 102 mmol/L (98-107); Estimated Glomerular Filt Rate > 60.0 mL/min (>60); Globulin 2.5 g/dL (1.7-4.1); Glucose 174 mg/dL (80-110); HEMOLYSIS < 15 (0-50); Potassium 4.5 mmol/L (3.4-5.1); Sodium 138 mmol/L (137-145); Total Protein 6.5 g/dL (6.3-8.2)
[2021-03-28 20:27] LABS: Add Manual Diff / Slide Review YES
[2021-03-28 20:34] LABS: Neutrophils Absolute Manual 368 /uL (3000-5900); Total Cells Counted 100
[2021-03-28 20:35] LABS: RBC Morphology Normal Morphology
[2021-03-28 20:35] LABS: COVID19 - ORCAS (NP or Nasal) Negative (Negative)
[2021-03-28 20:43] LABS: White Blood Cell Count 1.6 X10^3/uL (4.5-11.0)
== END ==
PROVIDERS: Pathology Hematology; PCP Family Medicine; Visit Provider Physician Assistant Medical
DX: Z20.822 Contact with and (suspected) exposure to COVID-19 (principal); D70.9 Neutropenia, unspecified
CPT/HCPCS: 80053; 85007; 85025; U0003

== ENCOUNTER → 2021-04-22 09:09 | Outpatient (CLI) | payer OTHER, SELFPAY ==
--- NOTE | 2021-04-22 09:10 | DI.ECHO.S_ITS ---
[facility]---------+ [facility] +---------+ : : [address] : : : : [id number] : : : : Phone: [phone]+ Echocardiogram Report + + :Name: BRADEN AYOUB Study Date: 04/22/2021 Height: 70 in : :[facility] ReadingLocation: Weight: 140 lb : : Gender: Female BSA: 1.8 m2 : :: 1955 Age: 65 yrs BP: 152/90 mmHg: :Reason For Study: EXERTIONAL FATIGUE, DYSPNEA, SHORTNESS OF : :BREATH : :Ordering Physician: LES, : :MALLORY Performed By: Mine Beltran : :Referring: LLUVIA SMITH : + + Interpretation Summary 1) Normal left ventricular thickness, size, wall motion, and systolic function (EF 60-65%). 2) Normal right ventricular size and function. 3) No significant valvular abnormalities. 4) The right ventricular systolic pressure is estimated to be at least 24 mmHg based on an estimated right atrial pressure of 3 mm Hg. 5) No prior Echo available for comparison. Procedure: A two-dimensional transthoracic echocardiogram with color flow and Doppler was performed. The study quality was technically adequate. There is no prior echocardiogram noted for this patient. The patient was in sinus rhythm with heart rates between 64-75 bpm during the exam. Left Ventricle: The left ventricle is normal in size and wall thickness. The ejection fraction is estimated to be 60-65%. Left ventricular systolic function appears normal without focal wall motion abnormalities. Diastolic parameters suggest a relaxation abnormality of the left ventricle, consistent with probable normal filling pressures. Right Ventricle: The right ventricle is normal in size and function. Atria: Both atria are normal in size. There is no Doppler evidence for an interatrial shunt. Mitral Valve: The mitral valve is normal in structure and function. There is mild mitral regurgitation. Aortic Valve: The aortic valve is slightly calcified. The aortic valve is trileaflet. There is no aortic valve stenosis. There is trace aortic regurgitation. Tricuspid Valve: The tricuspid valve is normal in structure and function. There is mild tricuspid regurgitation. The right ventricular systolic pressure is estimated to be at least 24 mmHg based on an estimated right atrial pressure of 3 mm Hg. Pulmonic Valve: The pulmonic valve is not well seen, but is grossly normal. There is trace pulmonic regurgitation. Great Vessels: The aortic root is normal size. The ascending aorta is at the upper limits of normal in size. The IVC is of normal diameter and collapses greater than 50% with a sniff. This suggests a low right atrial pressure of 3 mm Hg. Pericardium/ Pleura There is no pericardial effusion. There is no pleural effusion. MMode/2D Measurements & Calculations LVIDd: 4.4 cm LVOT diam: 2.0 cm LVIDs: 2.7 cm Ao root diam: 3.6 cm FS: 37.4 % asc Aorta Diam: 3.5 cm IVSd: 0.55 cm Ao Arch Diam (Prox Trans): 2.3 cm LVPWd: 0.64 cm LV ledesma. diameter/BSA (cm/m^2): 2.4 LV sys. diameter/BSA (cm/m^2): 1.5 LA A2 area: 18.4 cm2 RA long axis: 4.8 cm LA A4 area: 16.1 cm2 RA area: 15.6 cm2 LA length (vol): 5.2 cm RA vol: 43.3 ml LA vol: 48.6 ml RA : 24.1 ml/m2 LA vol index: 27.1 ml/m2 IVC diam: 1.7 cm RVD1 (basal): 2.4 cm TAPSE: 1.8 cm Doppler Measurements & Calculations Ao V2 max: 141.0 cm/sec LVOT Max Edgar: 96.0 cm/sec Ao V2 mean: 101.4 cm/sec LV V1 max P.7 mmHg Ao max P.0 mmHg LV V1 VTI: 20.8 cm Ao mean P.6 mmHg SHAVON(I,D): 2.0 cm2 Ao V2 VTI: 32.0 cm SHAVON(V,D): 2.1 cm2 sev ratio: 0.65 SHAVON indexed to BSA (cm^2/m^2): 1.1 MV E max edgar: 68.9 cm/sec TR max edagr: 233.6 cm/sec MV A max edgar: 85.1 cm/sec TR max P.8 mmHg MV E/A: 0.81 PA V2 max: 93.9 cm/sec Med Peak E' Edgar: 5.9 cm/sec PA V2 mean: 65.5 cm/sec E/E' med: 11.7 PA mean P.9 mmHg Lat Peak E' Edgar: 8.1 cm/sec PA pr(Accel): 12.2 mmHg E/E' lat: 8.5 E/e' average: 10.1 MV dec time: 0.25 sec SV(LVOT): 64.3 ml Reading Physician:10:57 AM
== END ==
PROVIDERS: PCP Family Medicine; Referring Provider Family Medicine; Visit Provider Family Medicine
DX: I08.1 Rheumatic disorders of both mitral and tricuspid valves (principal); R06.00 Dyspnea, unspecified; R06.02 Shortness of breath; T73.3XXA Exhaustion due to excessive exertion, initial encounter
CPT/HCPCS: 93306

== ENCOUNTER → 2021-04-28 08:13 | Outpatient (CLI) | payer OTHER, SELFPAY ==
[2021-04-29 23:30] LABS: COVID19 - ORCAS (NP or Nasal) Negative (Negative)
== END ==
PROVIDERS: PCP Family Medicine; Visit Provider Family Medicine
DX: Z20.822 Contact with and (suspected) exposure to COVID-19 (principal)
CPT/HCPCS: U0003

== ENCOUNTER → 2021-05-01 13:13 | Outpatient (CLI) | payer OTHER, SELFPAY ==
[2021-05-01 19:41] LABS: Alanine Aminotransferase 13 IU/L (<35); Albumin 4.4 g/dL (3.5-5.0); Albumin Globulin Ratio 1.6 (1.0-2.8); Alkaline Phosphatase 102 U/L (38-126); Aspartate Aminotransferase 38 IU/L (14-36); BUN Creatinine Ratio 16.1 (6-22); Bilirubin Total 0.6 mg/dL (0.2-1.3); Blood Urea Nitrogen 10 mg/dL (7-17); Carbon Dioxide 31 mmol/L (22-32); Chloride 102 mmol/L (98-107); Estimated Glomerular Filt Rate > 60.0 mL/min (>60); Globulin 2.8 g/dL (1.7-4.1); Glucose 88 mg/dL (80-110); HEMOLYSIS < 15 (0-50); Potassium 4.5 mmol/L (3.4-5.1); Sodium 142 mmol/L (137-145); Total Protein 7.2 g/dL (6.3-8.2)
[2021-05-01 19:52] LABS: Hemoglobin A1C% w Est Avg Glu 5.3 % (4.0-6.0)
[2021-05-01 20:12] LABS: Add Manual Diff / Slide Review NO; Basophils Absolute Auto 0 /uL (0-100); Basophils Percent Auto 0.6 % (0-2); Eosinophils Absolute Auto 0 /uL (0-450); Hematocrit 39.6 % (36-46); Hemoglobin 13.8 g/dL (12.0-16.0); Lymphocytes Absolute Auto 1000 /uL (1100-4500); Lymphocytes Percent Auto 53.7 % (25-40); Mean Corpuscular HGB Conc 34.9 % (30-36); Mean Corpuscular Hemoglobin 31.3 PG (26-34); Mean Corpuscular Volume 89.6 fL (80-100); Monocytes Absolute Auto 300 /uL (0-900); Monocytes Percent Auto 13.9 % (3-14); Neutrophils Absolute Auto 600 /uL (1500-7000); Neutrophils Percent Auto 31.8 % (50-75); Platelet Count 246 X10^3/uL (150-400); Red Blood Cell Count 4.41 X10^6/uL (4.0-5.2); Red Cell Distribution Width 14.1 % (11.6-14.8)
== END ==
PROVIDERS: Pathology Hematology; PCP Family Medicine
DX: R73.9 Hyperglycemia, unspecified (principal); D70.9 Neutropenia, unspecified
CPT/HCPCS: 80053; 83036; 85025

== ENCOUNTER → 2021-06-26 13:17 | Outpatient (CLI) | payer OTHER, SELFPAY ==
[2021-06-26 19:22] LABS: Alanine Aminotransferase 12 IU/L (<35); Albumin 4.5 g/dL (3.5-5.0); Albumin Globulin Ratio 1.6 (1.0-2.8); Alkaline Phosphatase 83 U/L (38-126); Aspartate Aminotransferase 33 IU/L (14-36); BUN Creatinine Ratio 19.3 (6-22); Bilirubin Total 0.8 mg/dL (0.2-1.3); Blood Urea Nitrogen 11 mg/dL (7-17); Calcium 9.6 mg/dL (8.4-10.2); Carbon Dioxide 30 mmol/L (22-32); Chloride 104 mmol/L (98-107); Estimated Glomerular Filt Rate > 60.0 mL/min (>60); Globulin 2.8 g/dL (1.7-4.1); Glucose 71 mg/dL (80-110); HEMOLYSIS < 15 (0-50); Potassium 4.2 mmol/L (3.4-5.1); Sodium 139 mmol/L (137-145); Total Protein 7.3 g/dL (6.3-8.2)
[2021-06-26 19:23] LABS: Add Manual Diff / Slide Review NO; Basophils Absolute Auto 0 /uL (0-100); Basophils Percent Auto 0.4 % (0-2); Eosinophils Absolute Auto 0 /uL (0-450); Hematocrit 39.9 % (36-46); Hemoglobin 13.9 g/dL (12.0-16.0); Lymphocytes Absolute Auto 1000 /uL (1100-4500); Lymphocytes Percent Auto 51.3 % (25-40); Mean Corpuscular HGB Conc 34.9 % (30-36); Mean Corpuscular Hemoglobin 31.5 PG (26-34); Mean Corpuscular Volume 90.3 fL (80-100); Monocytes Absolute Auto 300 /uL (0-900); Monocytes Percent Auto 16.2 % (3-14); Neutrophils Absolute Auto 600 /uL (1500-7000); Neutrophils Percent Auto 32.1 % (50-75); Platelet Count 164 X10^3/uL (150-400); Red Blood Cell Count 4.42 X10^6/uL (4.0-5.2); Red Cell Distribution Width 14.4 % (11.6-14.8)
== END ==
PROVIDERS: Pathology Hematology; PCP Family Medicine; Visit Provider Family Medicine
DX: D70.9 Neutropenia, unspecified (principal); D69.6 Thrombocytopenia, unspecified; M54.50 Low back pain, unspecified; M54.6 Pain in thoracic spine
CPT/HCPCS: 80053; 85025

== ENCOUNTER → 2021-08-08 10:48 | Outpatient (CLI) | payer OTHER, SELFPAY ==
--- NOTE | 2021-08-08 10:52 | DI.MRI.S_ITS ---
PROCEDURE: MR THORACIC SPINE WO CON INDICATIONS: Thoracic pain and imaging per chart note 06/26/20 TECHNIQUE: Noncontrast sagittal T1 spine echo and T2 fast spin echo, sagittal STIR, axial T1 and T2 fast spin echo through the thoracic spine. COMPARISON: [facility], MR, MR CERVICAL SPINE WO CON, 08/08/2021, 11:01. FINDINGS: Image quality: Excellent. Alignment and Curvature: There is normal bony alignment. Bone Marrow: Marrow is of normal overall signal. No acute vertebral body compression fractures. Spinal Cord: Visualized spinal cord is normal in size and signal. Paraspinous Soft Tissues: No paravertebral masses. Miscellaneous: On axial images, central canal and foramina appear widely patent at all scanned levels. Multi level disc desiccation is present. There is retrolisthesis of C6 on C7 within the cervical spine. Minimal scattered disc bulges are present throughout the thoracic spine. IMPRESSION: Minimal scattered disc bulges throughout the thoracic spine without spinal stenosis or foraminal narrowing. Multilevel disc desiccation. Dictated by: Connie Hoffman M.D. on 08/08/2021 at 16:24 Approved by: Connie Hoffman M.D. on 08/08/2021 at 16:26
--- NOTE | 2021-08-08 10:52 | DI.MRI.S_ITS ---
PROCEDURE: MR CERVICAL SPINE WO CON INDICATIONS: Stenosis TECHNIQUE: Noncontrast sagittal T1 spin echo and T2 fast spin echo, sagittal STIR, foraminal oblique sagittal T2 fast spin echo, and axial gradient echo or T2 fast spin echo through the cervical spine. COMPARISON: None. FINDINGS: Image quality: Excellent. Alignment and Curvature: There is grade 1 retrolisthesis C5 on C6 as well as C6 on C7 measuring 2 and 3 mm respectively. There is overall cervical straightening. Bone Marrow: Marrow demonstrates normal overall signal. Minimal to mild reactive endplate changes are present C5-6 and C6-7. Spinal Cord: Visualized spinal cord has normal size and signal. No cerebellar tonsillar herniation. Paraspinous Soft Tissues: No paravertebral masses. Prevertebral soft tissues are normal in thickness. Discs: Multilevel [id number]-[id number] disc space narrowing most severe at C5-6 and C6-7. C2-C3: No disc bulge, spinal stenosis or foraminal narrowing. C3-C4: Minimal disc bulge without spinal stenosis. Moderate left foraminal narrowing with uncovertebral hypertrophy. C4-C5: Minimal disc bulge with indentation of the anterior thecal sac as well as cord. Qsnd-[id number] left and mild right foraminal narrowing with uncovertebral hypertrophy. C5-C6: Mild disc bulge with mild spinal stenosis. Moderate bilateral foraminal narrowing with uncovertebral hypertrophy. C6-C7: Mild disc bulge with [id number] spinal stenosis. Moderate to severe left and minimal to mild right foraminal narrowing with uncovertebral hypertrophy. C7-T1: No disc bulge or spinal stenosis. Mild left foraminal narrowing. IMPRESSION: Multilevel degenerative changes with ptyb-qq-wigdrcer spinal stenosis most notable at C6-7 secondary to disc bulge as well as retrolisthesis. Multilevel foraminal narrowing most severe at C6-7 secondary to uncovertebral arthropathy. Dictated by: Connie Hoffman M.D. on 08/08/2021 at 16:13 Approved by: Connie Hoffman M.D. on 08/08/2021 at 16:16
--- NOTE | 2021-08-08 10:52 | DI.MRI.S_ITS ---
PROCEDURE: MR LUMBAR SPINE WO CON INDICATIONS: spinal Stenosis TECHNIQUE: Noncontrast sagittal T1 spin echo and T2 fast echo, sagittal STIR, and T2 fast spin echo through the lumbar spine. In cases with scoliosis, additional coronal T2 fast spin echo may be performed. COMPARISON: None. FINDINGS: Image quality: Excellent. Alignment and Curvature: There is normal bony alignment. Bone Marrow: Marrow is of normal overall signal. No acute vertebral body compression fractures. Spinal Cord: Conus medullaris terminates at the L1 level. Visualized cord demonstrates normal signal and size. Paraspinous Soft Tissues: No paravertebral masses. Discs: Multilevel moderate to severe disc desiccation is present. L1-L2: No disc bulge, spinal stenosis or foraminal narrowing. Mild facet and ligamentum flavum hypertrophy are present. L2-L3: Mild disc bulge with superimposed small posterior central protrusion. No spinal stenosis or foraminal narrowing. Facet and ligamentum flavum hypertrophy are present. L3-L4: Mild disc bulge with superimposed posterior central protrusion. There is indentation of the anterior thecal sac. Mild left foraminal narrowing is present with facet and ligamentum flavum hypertrophy. L4-L5: Mild disc bulge with superimposed broad-based posterior central protrusion. Minimal effacement of the anterior thecal sac is present. Mild left and moderate right foraminal narrowing with facet and ligamentum flavum hypertrophy. L5-S1: Mild disc bulge without spinal stenosis. Moderate to severe left and moderate right foraminal narrowing with facet and ligamentum flavum hypertrophy. IMPRESSION: Multilevel disc bulges and protrusions. Mild indentation of the anterior thecal sac without gross spinal stenosis at L3-4 and L4-5. Multilevel foraminal narrowing most severe at L5-S1 secondary to facet arthropathy. Dictated by: Connie Hoffman M.D. on 08/08/2021 at 16:26 Approved by: Connie Hoffman M.D. on 08/08/2021 at 16:29
== END ==
PROVIDERS: PCP Family Medicine; Referring Provider Family Medicine; Visit Provider Family Medicine
DX: M48.04 Spinal stenosis, thoracic region (principal); M51.37 Other intervertebral disc degeneration, lumbosacral region; M48.00 Spinal stenosis, site unspecified; M51.24 Other intervertebral disc displacement, thoracic region; M51.26 Other intervertebral disc displacement, lumbar region; M48.07 Spinal stenosis, lumbosacral region; M48.02 Spinal stenosis, cervical region; M50.223 Other cervical disc displacement at C6-C7 level; M43.12 Spondylolisthesis, cervical region
CPT/HCPCS: 72141; 72146; 72148

== ENCOUNTER → 2021-08-29 13:27 | Outpatient (CLI) | payer OTHER, SELFPAY ==
[2021-08-29 19:26] LABS: HEMOLYSIS < 15 (0-50)
[2021-08-29 19:30] LABS: Alanine Aminotransferase 12 IU/L (<35); Albumin 4.8 g/dL (3.5-5.0); Albumin Globulin Ratio 1.8 (1.0-2.8); Alkaline Phosphatase 98 U/L (38-126); Aspartate Aminotransferase 33 IU/L (14-36); BUN Creatinine Ratio 20.4 (6-22); Bilirubin Total 0.6 mg/dL (0.2-1.3); Blood Urea Nitrogen 11 mg/dL (7-17); Calcium 9.4 mg/dL (8.4-10.2); Carbon Dioxide 26 mmol/L (22-32); Chloride 104 mmol/L (98-107); Estimated Glomerular Filt Rate > 60.0 mL/min (>60); Globulin 2.6 g/dL (1.7-4.1); Glucose 75 mg/dL (80-110); Potassium 4.4 mmol/L (3.4-5.1); Sodium 141 mmol/L (137-145); Total Protein 7.4 g/dL (6.3-8.2)
[2021-08-29 19:31] LABS: Erythrocyte Sedimentation Rate 6 MM/HR (0-20)
[2021-08-29 19:32] LABS: Hemoglobin 13.9 g/dL (12.0-16.0); Mean Corpuscular HGB Conc 33.9 % (30-36); Mean Corpuscular Hemoglobin 30.5 PG (26-34); Mean Corpuscular Volume 89.9 fL (80-100); Platelet Count 153 X10^3/uL (150-400); Red Blood Cell Count 4.56 X10^6/uL (4.0-5.2)
[2021-08-29 19:36] LABS: High Sensitivity CRP - Cardiac 0.5 mg/L (1.0-3.0)
[2021-08-29 19:46] LABS: Add Manual Diff / Slide Review YES
[2021-08-29 20:05] LABS: Neutrophils Absolute Manual 504 /uL (3000-5900); Total Cells Counted 50
[2021-08-29 20:06] LABS: Anisocytosis 1+; Ovalocytes 1+; Poikilocytosis 1+
[2021-08-29 20:14] LABS: White Blood Cell Count 1.8 X10^3/uL (4.5-11.0)
== END ==
PROVIDERS: PCP Family Medicine; Visit Provider Pathology Hematology
DX: D46.B Refractory cytopenia with multilineage dysplasia and ring sideroblasts (principal); D75.9 Disease of blood and blood-forming organs, unspecified
CPT/HCPCS: 80053; 85007; 85025; 85651; 86140

== ENCOUNTER → 2021-09-10 11:49 | Outpatient (CLI) | payer OTHER, SELFPAY ==
--- NOTE | 2021-09-10 11:50 | DI.US.S_ITS ---
PROCEDURE: US PERIPH VENOUS LOW EXTREM LT INDICATIONS: history of DVT. Foot swelling TECHNIQUE: Real-time imaging, as well as color and pulse Doppler interrogation, were performed of the lower extremity deep veins from the inguinal ligament to the popliteal fossa. COMPARISON: None. FINDINGS: The common femoral, femoral and popliteal veins are normally compressible, and free of intraluminal thrombus. Color and pulse Doppler demonstrate normal phasic intraluminal flow. There is normal augmentation response to distal compression maneuver. IMPRESSION: Negative for deep venous thrombosis. Dictated by: Mat Eckert M.D. on 09/10/2021 at 11:45 Approved by: Mat Eckert M.D. on 09/10/2021 at 11:46
== END ==
PROVIDERS: PCP Family Medicine; Referring Provider Family Medicine; Visit Provider Family Medicine
DX: M79.89 Other specified soft tissue disorders (principal); Z86.718 Personal history of other venous thrombosis and embolism
CPT/HCPCS: 93971

== ENCOUNTER → 2021-10-24 06:59 | Outpatient (CLI) | payer OTHER, SELFPAY ==
[2021-10-24 19:53] LABS: COVID19 - ORCAS (NP or Nasal) Negative (Negative)
== END ==
PROVIDERS: PCP Family Medicine; Visit Provider Physician Assistant
DX: Z20.822 Contact with and (suspected) exposure to COVID-19 (principal)
CPT/HCPCS: U0003

== ENCOUNTER → 2021-10-28 11:45 | Outpatient (CLI) | payer OTHER, SELFPAY ==
[2021-10-28 18:19] LABS: HEMOLYSIS 17 (0-50)
[2021-10-28 18:23] LABS: Alanine Aminotransferase 13 IU/L (<35); Albumin 4.5 g/dL (3.5-5.0); Albumin Globulin Ratio 1.8 (1.0-2.8); Alkaline Phosphatase 75 U/L (38-126); Aspartate Aminotransferase 33 IU/L (14-36); BUN Creatinine Ratio 15.4 (6-22); Bilirubin Total 0.7 mg/dL (0.2-1.3); Blood Urea Nitrogen 10 mg/dL (7-17); Carbon Dioxide 28 mmol/L (22-32); Chloride 103 mmol/L (98-107); Estimated Glomerular Filt Rate > 60 mL/min (>60); Globulin 2.5 g/dL (1.7-4.1); Glucose 154 mg/dL (80-110); Potassium 4.3 mmol/L (3.4-5.1); Sodium 138 mmol/L (137-145)
[2021-10-28 18:24] LABS: Hematocrit 41.1 % (36-46); Hemoglobin 14.2 g/dL (12.0-16.0); Mean Corpuscular HGB Conc 34.6 % (30-36); Mean Corpuscular Hemoglobin 31.7 PG (26-34); Mean Corpuscular Volume 91.7 fL (80-100); Platelet Count 111 X10^3/uL (150-400); Red Blood Cell Count 4.48 X10^6/uL (4.0-5.2); Red Cell Distribution Width 15.1 % (11.6-14.8)
[2021-10-28 18:32] LABS: High Sensitivity CRP - Cardiac 0.4 mg/L (1.0-3.0)
[2021-10-28 18:40] LABS: Add Manual Diff / Slide Review YES; Erythrocyte Sedimentation Rate 4 MM/HR (0-20)
[2021-10-28 19:31] LABS: White Blood Cell Count 1.2 X10^3/uL (4.5-11.0)
[2021-10-28 19:59] LABS: Anisocytosis 2+; Burr Cells 1+; Neutrophils Absolute Manual 324 /uL (3000-5900); Nucleated Red Blood Cells 1 #/Diff; Poikilocytosis 2+; Smudge Cells 1+; Total Cells Counted 100
[2021-10-28 20:00] LABS: Acanthocytes 1+; Polychromasia 1+; Tear Drop Cells 1+
== END ==
PROVIDERS: PCP Family Medicine; Visit Provider Pathology Hematology
DX: D75.9 Disease of blood and blood-forming organs, unspecified (principal)
CPT/HCPCS: 80053; 85007; 85025; 85651; 86140

== ENCOUNTER → 2021-11-05 11:39 | Outpatient (CLI) | payer OTHER, SELFPAY ==
[2021-11-05 20:10] LABS: Add Manual Diff / Slide Review NO; Basophils Absolute Auto 0 /uL (0-100); Basophils Percent Auto 0.7 % (0-2); Eosinophils Absolute Auto 0 /uL (0-450); Hematocrit 39.9 % (36-46); Hemoglobin 13.7 g/dL (12.0-16.0); Lymphocytes Absolute Auto 900 /uL (1100-4500); Lymphocytes Percent Auto 56.8 % (25-40); Mean Corpuscular HGB Conc 34.3 % (30-36); Mean Corpuscular Hemoglobin 31.4 PG (26-34); Mean Corpuscular Volume 91.5 fL (80-100); Monocytes Absolute Auto 200 /uL (0-900); Monocytes Percent Auto 14.6 % (3-14); Neutrophils Absolute Auto 400 /uL (1500-7000); Neutrophils Percent Auto 27.9 % (50-75); Platelet Count 129 X10^3/uL (150-400); Red Blood Cell Count 4.36 X10^6/uL (4.0-5.2); Red Cell Distribution Width 15.3 % (11.6-14.8)
== END ==
PROVIDERS: Pathology Hematology; PCP Family Medicine; Visit Provider Physician Assistant
DX: D70.9 Neutropenia, unspecified (principal)
CPT/HCPCS: 85025

== ENCOUNTER → 2021-11-25 12:04 | Outpatient (CLI) | payer OTHER, SELFPAY ==
[2021-11-25 18:37] LABS: Alanine Aminotransferase 14 IU/L (<35); Albumin 4.5 g/dL (3.5-5.0); Albumin Globulin Ratio 1.8 (1.0-2.8); Alkaline Phosphatase 94 U/L (38-126); Aspartate Aminotransferase 37 IU/L (14-36); BUN Creatinine Ratio 19.7 (6-22); Bilirubin Total 0.6 mg/dL (0.2-1.3); Blood Urea Nitrogen 12 mg/dL (7-17); Calcium 9.5 mg/dL (8.4-10.2); Carbon Dioxide 27 mmol/L (22-32); Chloride 103 mmol/L (98-107); Estimated Glomerular Filt Rate > 60 mL/min (>60); Globulin 2.5 g/dL (1.7-4.1); Glucose 76 mg/dL (80-110); HEMOLYSIS < 15 (0-50); Potassium 4.3 mmol/L (3.4-5.1); Sodium 138 mmol/L (137-145)
[2021-11-25 18:40] LABS: High Sensitivity CRP - Cardiac 2.4 mg/L (1.0-3.0)
[2021-11-25 18:49] LABS: Hemoglobin A1C% w Est Avg Glu 5.6 % (4.0-6.0)
[2021-11-25 18:53] LABS: Hematocrit 38.7 % (36-46); Hemoglobin 13.6 g/dL (12.0-16.0); Mean Corpuscular HGB Conc 35.2 % (30-36); Mean Corpuscular Hemoglobin 32.1 PG (26-34); Mean Corpuscular Volume 91.1 fL (80-100); Platelet Count 162 X10^3/uL (150-400); Red Blood Cell Count 4.25 X10^6/uL (4.0-5.2); Red Cell Distribution Width 14.9 % (11.6-14.8)
[2021-11-25 19:24] LABS: Erythrocyte Sedimentation Rate 11 MM/HR (0-20)
[2021-11-25 19:34] LABS: Add Manual Diff / Slide Review YES
[2021-11-25 19:49] LABS: Neutrophils Absolute Manual 448 /uL (3000-5900); RBC Morphology Normal Morphology; Total Cells Counted 50
[2021-11-25 19:55] LABS: White Blood Cell Count 1.6 X10^3/uL (4.5-11.0)
== END ==
PROVIDERS: PCP Family Medicine; Visit Provider Pathology Hematology
DX: D70.9 Neutropenia, unspecified (principal); D75.9 Disease of blood and blood-forming organs, unspecified; M48.061 Spinal stenosis, lumbar region without neurogenic claudication; R73.9 Hyperglycemia, unspecified
CPT/HCPCS: 80053; 83036; 85007; 85025; 85651; 86140

== ENCOUNTER → 2022-01-20 14:28 | Outpatient (CLI) | payer OTHER, SELFPAY ==
[2022-01-20 19:21] LABS: Add Manual Diff / Slide Review NO; Basophils Absolute Auto 0 /uL (0-100); Basophils Percent Auto 0.4 % (0-2); Eosinophils Absolute Auto 0 /uL (0-450); Eosinophils Percent Auto 0.1 % (2-4); Hematocrit 39.6 % (36-46); Hemoglobin 13.7 g/dL (12.0-16.0); Lymphocytes Absolute Auto 1200 /uL (1100-4500); Lymphocytes Percent Auto 60.6 % (25-40); Mean Corpuscular HGB Conc 34.6 % (30-36); Mean Corpuscular Hemoglobin 31.6 PG (26-34); Mean Corpuscular Volume 91.4 fL (80-100); Monocytes Absolute Auto 200 /uL (0-900); Monocytes Percent Auto 12.3 % (3-14); Neutrophils Absolute Auto 500 /uL (1500-7000); Neutrophils Percent Auto 26.6 % (50-75); Platelet Count 130 X10^3/uL (150-400); Red Blood Cell Count 4.33 X10^6/uL (4.0-5.2); Red Cell Distribution Width 15.1 % (11.6-14.8)
[2022-01-20 19:24] LABS: Alanine Aminotransferase 15 IU/L (<35); Albumin 4.5 g/dL (3.5-5.0); Albumin Globulin Ratio 1.8 (1.0-2.8); Alkaline Phosphatase 99 U/L (38-126); Aspartate Aminotransferase 39 IU/L (14-36); BUN Creatinine Ratio 17.5 (6-22); Bilirubin Total 0.8 mg/dL (0.2-1.3); Blood Urea Nitrogen 11 mg/dL (7-17); Calcium 9.1 mg/dL (8.4-10.2); Carbon Dioxide 26 mmol/L (22-32); Chloride 103 mmol/L (98-107); Estimated Glomerular Filt Rate > 60 mL/min (>60); Globulin 2.5 g/dL (1.7-4.1); Glucose 113 mg/dL (80-110); HEMOLYSIS < 15 (0-50); Potassium 4.2 mmol/L (3.4-5.1); Sodium 138 mmol/L (137-145)
[2022-01-20 19:30] LABS: High Sensitivity CRP - Cardiac 0.6 mg/L (1.0-3.0)
[2022-01-20 20:04] LABS: Erythrocyte Sedimentation Rate 6 MM/HR (0-20)
== END ==
PROVIDERS: PCP Family Medicine; Visit Provider Pathology Hematology
DX: D75.9 Disease of blood and blood-forming organs, unspecified (principal)
CPT/HCPCS: 80053; 85025; 85651; 86140

== ENCOUNTER → 2022-03-19 13:42 | Outpatient (CLI) | payer OTHER, SELFPAY ==
[2022-03-19 19:39] LABS: Alanine Aminotransferase 19 IU/L (<35); Albumin 4.6 g/dL (3.5-5.0); Albumin Globulin Ratio 1.6 (1.0-2.8); Alkaline Phosphatase 113 U/L (38-126); Aspartate Aminotransferase 36 IU/L (14-36); BUN Creatinine Ratio 13.6 (6-22); Bilirubin Total 0.8 mg/dL (0.2-1.3); Blood Urea Nitrogen 8 mg/dL (7-17); Calcium 9.6 mg/dL (8.4-10.2); Carbon Dioxide 28 mmol/L (22-32); Chloride 98 mmol/L (98-107); Estimated Glomerular Filt Rate > 60 mL/min (>60); Globulin 2.9 g/dL (1.7-4.1); Glucose 85 mg/dL (80-110); HEMOLYSIS < 15 (0-50); Potassium 4.5 mmol/L (3.4-5.1); Sodium 138 mmol/L (137-145); Total Protein 7.5 g/dL (6.3-8.2)
[2022-03-19 19:42] LABS: Add Manual Diff / Slide Review NO; Basophils Absolute Auto 0 /uL (0-100); Basophils Percent Auto 0.2 % (0-2); Eosinophils Absolute Auto 0 /uL (0-450); Eosinophils Percent Auto 0.2 % (2-4); Hematocrit 38.2 % (36-46); Hemoglobin 13.5 g/dL (12.0-16.0); Lymphocytes Absolute Auto 1000 /uL (1100-4500); Lymphocytes Percent Auto 34.1 % (25-40); Mean Corpuscular HGB Conc 35.3 % (30-36); Mean Corpuscular Volume 90.7 fL (80-100); Monocytes Absolute Auto 500 /uL (0-900); Monocytes Percent Auto 16.3 % (3-14); Neutrophils Absolute Auto 1400 /uL (1500-7000); Neutrophils Percent Auto 49.2 % (50-75); Platelet Count 257 X10^3/uL (150-400); Red Blood Cell Count 4.21 X10^6/uL (4.0-5.2); Red Cell Distribution Width 14.1 % (11.6-14.8); White Blood Cell Count 2.9 X10^3/uL (4.5-11.0)
[2022-03-19 19:43] LABS: High Sensitivity CRP - Cardiac 8.7 mg/L (1.0-3.0)
[2022-03-19 20:28] LABS: Erythrocyte Sedimentation Rate 23 MM/HR (0-20)
== END ==
PROVIDERS: PCP Family Medicine; Visit Provider Pathology Hematology
DX: D70.9 Neutropenia, unspecified (principal); D75.9 Disease of blood and blood-forming organs, unspecified
CPT/HCPCS: 80053; 85025; 85651; 86140

== ENCOUNTER → 2022-05-08 10:04 | Outpatient (CLI) | payer OTHER, SELFPAY ==
[2022-05-08 20:29] LABS: High Sensitivity CRP - Cardiac 0.8 mg/L (1.0-3.0)
[2022-05-08 20:33] LABS: Hematocrit 40.7 % (36-46); Hemoglobin 14.1 g/dL (12.0-16.0); Mean Corpuscular HGB Conc 34.6 % (30-36); Mean Corpuscular Hemoglobin 31.6 PG (26-34); Mean Corpuscular Volume 91.5 fL (80-100); Platelet Count 151 X10^3/uL (150-400); Red Blood Cell Count 4.45 X10^6/uL (4.0-5.2); Red Cell Distribution Width 14.9 % (11.6-14.8)
[2022-05-08 20:34] LABS: Reticulocyte Count, Percent 2.7 % (1.1-2.6)
[2022-05-08 21:16] LABS: Add Manual Diff / Slide Review YES; White Blood Cell Count 1.5 X10^3/uL (4.5-11.0)
[2022-05-08 21:28] LABS: Neutrophils Absolute Manual 180 /uL (3000-5900); Total Cells Counted 50
[2022-05-08 21:29] LABS: RBC Morphology Normal Morphology
[2022-05-08 21:30] LABS: Folate 15.6 ng/mL (2.76-20.0); Vitamin B12 654 pg/mL (239-931)
== END ==
PROVIDERS: PCP Family Medicine; Visit Provider Pathology Hematology
DX: D70.9 Neutropenia, unspecified (principal)
CPT/HCPCS: 82607; 82746; 85007; 85025; 85045; 85651; 86140

== ENCOUNTER → 2022-05-19 11:46 | Outpatient (CLI) | payer OTHER, SELFPAY ==
[2022-05-19 19:46] LABS: High Sensitivity CRP - Cardiac 0.4 mg/L (1.0-3.0)
[2022-05-19 20:08] LABS: Hematocrit 41.1 % (36-46); Hemoglobin 13.9 g/dL (12.0-16.0); Mean Corpuscular HGB Conc 33.9 % (30-36); Mean Corpuscular Hemoglobin 31.3 PG (26-34); Mean Corpuscular Volume 92.2 fL (80-100); Platelet Count 148 X10^3/uL (150-400); Red Blood Cell Count 4.45 X10^6/uL (4.0-5.2)
[2022-05-19 20:22] LABS: Add Manual Diff / Slide Review YES; White Blood Cell Count 1.7 X10^3/uL (4.5-11.0)
[2022-05-19 20:35] LABS: Neutrophils Absolute Manual 459 /uL (3000-5900); Platelet Estimate Adequate on smear; RBC Morphology Normal Morphology; Total Cells Counted 100
[2022-05-19 20:37] LABS: Erythrocyte Sedimentation Rate 6 MM/HR (0-20)
[2022-05-19 20:48] LABS: Folate 13.3 ng/mL (2.76-20.0); Vitamin B12 737 pg/mL (239-931)
== END ==
PROVIDERS: PCP Family Medicine; Visit Provider Pathology Hematology
DX: D70.9 Neutropenia, unspecified (principal)
CPT/HCPCS: 82607; 82746; 85007; 85025; 85045; 85651; 86140

== ENCOUNTER → 2022-06-25 14:45 | Outpatient (CLI) | payer OTHER, MEDICAID, SELFPAY ==
[2022-06-26 08:05] LABS: Alanine Aminotransferase 16 IU/L (<35); Albumin 4.7 g/dL (3.5-5.0); Albumin Globulin Ratio 1.6 (1.0-2.8); Alkaline Phosphatase 113 U/L (38-126); Aspartate Aminotransferase 34 IU/L (14-36); BUN Creatinine Ratio 15.5 (6-22); Bilirubin Total 0.5 mg/dL (0.2-1.3); Blood Urea Nitrogen 9 mg/dL (7-17); Calcium 9.5 mg/dL (8.4-10.2); Carbon Dioxide 27 mmol/L (22-32); Chloride 101 mmol/L (98-107); Estimated Glomerular Filt Rate > 60 mL/min (>60); Glucose 81 mg/dL (80-110); HEMOLYSIS < 15 (0-50); Potassium 4.2 mmol/L (3.4-5.1); Sodium 140 mmol/L (137-145); Total Protein 7.7 g/dL (6.3-8.2)
[2022-06-26 08:09] LABS: Hematocrit 41.7 % (36-46); Hemoglobin 14.3 g/dL (12.0-16.0); Mean Corpuscular HGB Conc 34.2 % (30-36); Mean Corpuscular Hemoglobin 31.4 PG (26-34); Mean Corpuscular Volume 91.8 fL (80-100); Platelet Count 158 X10^3/uL (150-400); Red Blood Cell Count 4.54 X10^6/uL (4.0-5.2); Red Cell Distribution Width 14.4 % (11.6-14.8)
[2022-06-26 08:24] LABS: Add Manual Diff / Slide Review YES; White Blood Cell Count 1.8 X10^3/uL (4.5-11.0)
[2022-06-26 08:34] LABS: Erythrocyte Sedimentation Rate 7 MM/HR (0-20)
[2022-06-26 09:47] LABS: Neutrophils Absolute Manual 288 /uL (3000-5900); Total Cells Counted 50
[2022-06-26 09:48] LABS: RBC Morphology Normal Morphology
[2022-07-03 07:19] LABS: High Sensitivity CRP - Cardiac 0.6 mg/L (1.0-3.0)
== END ==
PROVIDERS: PCP Family Medicine; Visit Provider Pathology Hematology
DX: D70.9 Neutropenia, unspecified (principal); D75.9 Disease of blood and blood-forming organs, unspecified
CPT/HCPCS: 80053; 85007; 85025; 85651; 86140

== ENCOUNTER → 2022-07-16 13:26 | Outpatient (CLI) | payer OTHER, MEDICAID, SELFPAY ==
[2022-07-16 20:20] LABS: Rheumatoid Factor < 8.6 IU/mL (<12.0)
[2022-07-18 19:12] LABS: DNA (DS) Antibody <1 IU/mL (0-9)
[2022-07-19 09:35] LABS: Smooth Muscle Antibody 5 Units (0-19)
[2022-07-20 18:29] LABS: CCP Antibodies IgG/IgA 17 units (0-19)
[2022-07-21 15:39] LABS: ANA Screen, IFA Negative (.)
[2022-07-28 12:28] LABS: Atypical P-ANCA Titer <1:20 titer (Neg:<1:20); C-ANCA Titer <1:20 titer (Neg:<1:20); P-ANCA Titer <1:20 titer (Neg:<1:20)
[2022-07-29 14:20] LABS: HLA B27 Negative (.)
== END ==
PROVIDERS: PCP Family Medicine; Visit Provider Family Medicine
DX: D70.9 Neutropenia, unspecified (principal); G89.29 Other chronic pain; I27.82 Chronic pulmonary embolism; K74.69 Other cirrhosis of liver; L88 Pyoderma gangrenosum; M25.449 Effusion, unspecified hand; M54.9 Dorsalgia, unspecified; M79.89 Other specified soft tissue disorders
CPT/HCPCS: 81374; 83516; 83520; 86038; 86200; 86225; 86235; 86256; 86376; 86430

== ENCOUNTER → 2022-07-23 12:53 | Outpatient (CLI) | payer OTHER, MEDICAID, SELFPAY ==
[2022-07-23 20:31] LABS: Alanine Aminotransferase 15 IU/L (<35); Albumin 4.6 g/dL (3.5-5.0); Albumin Globulin Ratio 1.6 (1.0-2.8); Alkaline Phosphatase 88 U/L (38-126); Aspartate Aminotransferase 36 IU/L (14-36); BUN Creatinine Ratio 21.1 (6-22); Bilirubin Total 0.6 mg/dL (0.2-1.3); Blood Urea Nitrogen 12 mg/dL (7-17); Calcium 9.5 mg/dL (8.4-10.2); Carbon Dioxide 28 mmol/L (22-32); Chloride 102 mmol/L (98-107); Estimated Glomerular Filt Rate > 60 mL/min (>60); Globulin 2.8 g/dL (1.7-4.1); Glucose 100 mg/dL (80-110); HEMOLYSIS < 15 (0-50); Potassium 4.4 mmol/L (3.4-5.1); Sodium 139 mmol/L (137-145); Total Protein 7.4 g/dL (6.3-8.2)
[2022-07-23 20:37] LABS: Hematocrit 40.9 % (36-46); Mean Corpuscular HGB Conc 34.3 % (30-36); Mean Corpuscular Hemoglobin 31.3 PG (26-34); Mean Corpuscular Volume 91.1 fL (80-100); Platelet Count 130 X10^3/uL (150-400); Red Blood Cell Count 4.49 X10^6/uL (4.0-5.2); Red Cell Distribution Width 14.3 % (11.6-14.8)
[2022-07-23 20:45] LABS: Add Manual Diff / Slide Review YES; White Blood Cell Count 1.6 X10^3/uL (4.5-11.0)
[2022-07-23 21:09] LABS: Neutrophils Absolute Manual 576 /uL (3000-5900); RBC Morphology Normal Morphology; Total Cells Counted 50
== END ==
PROVIDERS: PCP Family Medicine; Visit Provider Internal Medicine Hematology
DX: D70.9 Neutropenia, unspecified (principal)
CPT/HCPCS: 80053; 85007; 85025

== ENCOUNTER → 2022-08-24 13:09 | Outpatient (CLI) | payer OTHER, MEDICAID, SELFPAY ==
[2022-08-24 20:29] LABS: Add Manual Diff / Slide Review NO; Basophils Absolute Auto 0 /uL (0-100); Basophils Percent Auto 1.3 % (0-2); Eosinophils Absolute Auto 0 /uL (0-450); Hematocrit 40.6 % (36-46); Hemoglobin 13.8 g/dL (12.0-16.0); Lymphocytes Absolute Auto 900 /uL (1100-4500); Mean Corpuscular HGB Conc 33.9 % (30-36); Mean Corpuscular Hemoglobin 30.8 PG (26-34); Monocytes Absolute Auto 200 /uL (0-900); Monocytes Percent Auto 14.7 % (3-14); Neutrophils Absolute Auto 400 /uL (1500-7000); Platelet Count 115 X10^3/uL (150-400); Red Blood Cell Count 4.46 X10^6/uL (4.0-5.2); Red Cell Distribution Width 14.5 % (11.6-14.8)
[2022-08-24 20:35] LABS: Alanine Aminotransferase 17 IU/L (<35); Albumin 4.4 g/dL (3.5-5.0); Albumin Globulin Ratio 1.7 (1.0-2.8); Alkaline Phosphatase 86 U/L (38-126); Aspartate Aminotransferase 37 IU/L (14-36); Bilirubin Total 0.8 mg/dL (0.2-1.3); Blood Urea Nitrogen 9 mg/dL (7-17); Calcium 9.2 mg/dL (8.4-10.2); Carbon Dioxide 26 mmol/L (22-32); Chloride 101 mmol/L (98-107); Estimated Glomerular Filt Rate > 60 mL/min (>60); Globulin 2.6 g/dL (1.7-4.1); Glucose 136 mg/dL (80-110); HEMOLYSIS < 15 (0-50); Sodium 136 mmol/L (137-145)
== END ==
PROVIDERS: PCP Family Medicine; Visit Provider Internal Medicine Hematology
DX: D70.9 Neutropenia, unspecified (principal)
CPT/HCPCS: 80053; 85025

== ENCOUNTER → 2022-10-05 11:59 | Outpatient (CLI) | payer OTHER, SELFPAY ==
[2022-10-05 20:36] LABS: Alanine Aminotransferase 14 IU/L (<35); Albumin 4.4 g/dL (3.5-5.0); Albumin Globulin Ratio 1.7 (1.0-2.8); Alkaline Phosphatase 86 U/L (38-126); Aspartate Aminotransferase 31 IU/L (14-36); BUN Creatinine Ratio 19.7 (6-22); Bilirubin Total 0.7 mg/dL (0.2-1.3); Blood Urea Nitrogen 12 mg/dL (7-17); Calcium 9.3 mg/dL (8.4-10.2); Carbon Dioxide 24 mmol/L (22-32); Chloride 103 mmol/L (98-107); Estimated Glomerular Filt Rate > 60 mL/min (>60); Globulin 2.6 g/dL (1.7-4.1); Glucose 86 mg/dL (80-110); HEMOLYSIS 16 (0-50); Potassium 4.4 mmol/L (3.4-5.1); Sodium 136 mmol/L (137-145)
[2022-10-05 20:51] LABS: Hematocrit 39.3 % (36-46); Hemoglobin 13.6 g/dL (12.0-16.0); Mean Corpuscular HGB Conc 34.7 % (30-36); Mean Corpuscular Hemoglobin 31.7 PG (26-34); Mean Corpuscular Volume 91.2 fL (80-100); Platelet Count 129 X10^3/uL (150-400); Red Blood Cell Count 4.31 X10^6/uL (4.0-5.2); Red Cell Distribution Width 14.8 % (11.6-14.8)
[2022-10-05 21:00] LABS: Add Manual Diff / Slide Review YES; White Blood Cell Count 1.7 X10^3/uL (4.5-11.0)
[2022-10-05 21:49] LABS: Anisocytosis 1+; Neutrophils Absolute Manual 595 /uL (3000-5900); Total Cells Counted 100
[2022-10-05 21:50] LABS: Burr Cells 1+
== END ==
PROVIDERS: PCP Family Medicine; Visit Provider Internal Medicine Hematology
DX: D70.9 Neutropenia, unspecified (principal)
CPT/HCPCS: 80053; 85007; 85025

== ENCOUNTER → 2022-12-09 11:32 | Outpatient (CLI) | payer OTHER, MEDICARE, MEDICAID, SELFPAY ==
[2022-12-09 20:01] LABS: Hematocrit 39.1 % (36-46); Hemoglobin 13.8 g/dL (12.0-16.0); Mean Corpuscular HGB Conc 35.3 % (30-36); Mean Corpuscular Hemoglobin 32.1 PG (26-34); Mean Corpuscular Volume 90.9 fL (80-100); Platelet Count 118 X10^3/uL (150-400); Red Cell Distribution Width 14.6 % (11.6-14.8)
[2022-12-09 20:20] LABS: Add Manual Diff / Slide Review YES; White Blood Cell Count 1.7 X10^3/uL (4.5-11.0)
[2022-12-09 20:31] LABS: Neutrophils Absolute Manual 714 /uL (3000-5900); Total Cells Counted 50
[2022-12-09 20:33] LABS: Poikilocytosis 1+
[2022-12-09 21:26] LABS: Alanine Aminotransferase 15 IU/L (<35); Albumin 4.6 g/dL (3.5-5.0); Albumin Globulin Ratio 1.8 (1.0-2.8); Alkaline Phosphatase 93 U/L (38-126); Aspartate Aminotransferase 34 IU/L (14-36); BUN Creatinine Ratio 17.6 (6-22); Bilirubin Total 0.9 mg/dL (0.2-1.3); Blood Urea Nitrogen 12 mg/dL (7-17); Calcium 9.1 mg/dL (8.4-10.2); Carbon Dioxide 24 mmol/L (22-32); Chloride 102 mmol/L (98-107); Estimated Glomerular Filt Rate > 60 mL/min (>60); Globulin 2.5 g/dL (1.7-4.1); Glucose 87 mg/dL (80-110); HEMOLYSIS 26 (0-50); Potassium 4.3 mmol/L (3.4-5.1); Sodium 136 mmol/L (137-145); Total Protein 7.1 g/dL (6.3-8.2)
== END ==
PROVIDERS: PCP Family Medicine; Visit Provider Internal Medicine Hematology
DX: D70.9 Neutropenia, unspecified (principal)
CPT/HCPCS: 80053; 85007; 85025

== ENCOUNTER → 2023-01-19 10:06 | Outpatient (CLI) | payer OTHER, MEDICARE, SELFPAY ==
[2023-01-19 20:40] LABS: Add Manual Diff / Slide Review NO; Basophils Absolute Auto 0 /uL (0-100); Basophils Percent Auto 1.3 % (0-2); Eosinophils Absolute Auto 0 /uL (0-450); Eosinophils Percent Auto 0.2 % (2-4); Hematocrit 37.9 % (36-46); Hemoglobin 13.4 g/dL (12.0-16.0); Lymphocytes Absolute Auto 800 /uL (1100-4500); Lymphocytes Percent Auto 40.3 % (25-40); Mean Corpuscular HGB Conc 35.2 % (30-36); Mean Corpuscular Hemoglobin 32.1 PG (26-34); Mean Corpuscular Volume 91.2 fL (80-100); Monocytes Absolute Auto 300 /uL (0-900); Monocytes Percent Auto 15.1 % (3-14); Neutrophils Absolute Auto 800 /uL (1500-7000); Neutrophils Percent Auto 43.1 % (50-75); Platelet Count 167 X10^3/uL (150-400); Red Blood Cell Count 4.16 X10^6/uL (4.0-5.2); Red Cell Distribution Width 14.3 % (11.6-14.8)
[2023-01-19 20:59] LABS: Alanine Aminotransferase 18 IU/L (<35); Albumin Globulin Ratio 1.4 (1.0-2.8); Alkaline Phosphatase 113 U/L (38-126); Aspartate Aminotransferase 40 IU/L (14-36); Bilirubin Total 0.7 mg/dL (0.2-1.3); Blood Urea Nitrogen 11 mg/dL (7-17); Calcium 9.1 mg/dL (8.4-10.2); Carbon Dioxide 26 mmol/L (22-32); Chloride 103 mmol/L (98-107); Estimated Glomerular Filt Rate > 60 mL/min (>60); Globulin 2.9 g/dL (1.7-4.1); Glucose 116 mg/dL (80-110); HEMOLYSIS 17 (0-50); Potassium 4.4 mmol/L (3.4-5.1); Sodium 137 mmol/L (137-145); Total Protein 6.9 g/dL (6.3-8.2)
== END ==
PROVIDERS: Internal Medicine Hematology; PCP Family Medicine; Visit Provider Family Medicine
DX: D70.9 Neutropenia, unspecified (principal); Z01.812 Encounter for preprocedural laboratory examination
CPT/HCPCS: 80053; 85025

== ENCOUNTER → 2023-01-20 11:54 | Outpatient (CLI) | payer OTHER, MEDICARE, SELFPAY ==
--- NOTE | 2023-01-20 11:55 | DI.CT.S_ITS ---
PROCEDURE: CT ABDOMEN PELVIS W CON INDICATIONS: Left lower quadrant pain TECHNIQUE: After the administration of oral and intravenous contrast, axial sections were acquired from the lung bases to the pubic symphysis. Coronal and sagittal reformats were performed. For radiation dose reduction, the following was used: automated exposure control, adjustment of mA and/or kV according to patient size. COMPARISON:None. FINDINGS: Image quality: Excellent. Lung bases: Unremarkable. Heart: No significant findings. ABDOMEN: Liver: Unremarkable. Gallbladder: Surgically absent Biliary ducts: Unremarkable. Pancreas: Unremarkable. Spleen: Unremarkable. Adrenal Glands: Unremarkable. Kidneys and Ureters: Unremarkable. Stomach and Bowel: Stomach is unremarkable. No bowel obstruction. Rectosigmoid diverticulosis . No evidence of acute cholecystitis. No abnormal bowel wall thickening. Peritoneum: No abnormal intraperitoneal fluid. No free air. Ventral Wall: No hernia. Abdominal Nodes: No retroperitoneal or mesenteric adenopathy by size criteria. Vessels: Aorta and inferior vena cava are normal in size. PELVIS: Pelvic Organs: Unremarkable. Bladder: Unremarkable. Pelvic Nodes: No enlarged lymph nodes. Miscellaneous: No inguinal hernias are seen. Bones: No acute or suspicious osseous lesion. IMPRESSION: Rectosigmoid diverticulosis. No CT evidence of acute diverticulitis. No acute findings in the abdomen or pelvis to explain patient's symptoms. Approved by: Ammy Teresa M.D. on 01/20/2023 at 22:38
== END ==
PROVIDERS: PCP Family Medicine; Referring Provider Family Medicine; Visit Provider Family Medicine
DX: K57.92 Diverticulitis of intestine, part unspecified, without perforation or abscess without bleeding; R10.32 Left lower quadrant pain; Z90.49 Acquired absence of other specified parts of digestive tract
CPT/HCPCS: 74177; Q9967

== ENCOUNTER → 2023-02-17 14:00 | Outpatient (CLI) | payer MEDICARE, OTHER, SELFPAY | PROVIDERS: PCP Family Medicine; Visit Provider Family Medicine | DX: R19.7 Diarrhea, unspecified (principal) | CPT/HCPCS: 87045; 87899 ==

== ENCOUNTER → 2023-03-08 14:01 | Outpatient (CLI) | payer OTHER, MEDICARE, SELFPAY ==
[2023-03-08 19:30] LABS: Hematocrit 38.9 % (36-46); Hemoglobin 13.4 g/dL (12.0-16.0); Mean Corpuscular HGB Conc 34.5 % (30-36); Mean Corpuscular Hemoglobin 31.6 PG (26-34); Mean Corpuscular Volume 91.6 fL (80-100); Platelet Count 171 X10^3/uL (150-400); Red Blood Cell Count 4.24 X10^6/uL (4.0-5.2); Red Cell Distribution Width 14.5 % (11.6-14.8)
[2023-03-08 19:39] LABS: Erythrocyte Sedimentation Rate 13 MM/HR (0-20)
[2023-03-08 19:43] LABS: Alanine Aminotransferase 18 IU/L (<35); Albumin 4.7 g/dL (3.5-5.0); Albumin Globulin Ratio 1.6 (1.0-2.8); Alkaline Phosphatase 109 U/L (38-126); Aspartate Aminotransferase 41 IU/L (14-36); BUN Creatinine Ratio 17.5 (6-22); Bilirubin Total 0.6 mg/dL (0.2-1.3); Blood Urea Nitrogen 10 mg/dL (7-17); Carbon Dioxide 27 mmol/L (22-32); Chloride 100 mmol/L (98-107); Estimated Glomerular Filt Rate > 60 mL/min (>60); Glucose 80 mg/dL (80-110); HEMOLYSIS < 15 (0-50); Potassium 4.1 mmol/L (3.4-5.1); Sodium 138 mmol/L (137-145); Total Protein 7.7 g/dL (6.3-8.2)
[2023-03-08 19:44] LABS: C-Reactive Protein Quant 0.6 mg/dL (<1.0)
[2023-03-08 19:49] LABS: White Blood Cell Count 1.6 X10^3/uL (4.5-11.0)
[2023-03-08 19:51] LABS: Add Manual Diff / Slide Review YES
[2023-03-08 19:54] LABS: Neutrophils Absolute Manual 384 /uL (3000-5900); RBC Morphology Normal Morphology; Total Cells Counted 100
[2023-03-08 19:55] LABS: Vitamin D 25 Hydroxy (D3) 37.8 ng/mL (30.0-100.0)
[2023-03-08 20:17] LABS: TSH w/ Reflex to FT4 0.93 uIU/mL (0.47-4.68)
[2023-03-08 20:51] LABS: Folate 14.6 ng/mL (2.76-20.0); Vitamin B12 Reflex MMA if <400 781 pg/mL (239-931)
[2023-03-11 14:40] LABS: Deamidated Gliadin Ab IgA 13 units (0-19); Deamidated Gliadin Ab IgG 3 units (0-19); Immunoglobulin A,Qn 280 mg/dL (87-352); t-Transglutaminase IgA <2 U/mL (0-3)
[2023-03-13 13:32] LABS: ANA Screen, IFA Negative (.)
== END ==
PROVIDERS: Internal Medicine Hematology; PCP Family Medicine; Visit Provider Family Medicine
DX: R19.7 Diarrhea, unspecified (principal); D70.9 Neutropenia, unspecified; M35.9 Systemic involvement of connective tissue, unspecified
CPT/HCPCS: 80053; 82306; 82607; 82746; 82784; 83516; 84443; 85007; 85025; 85651; 86038; 86140

== ENCOUNTER → 2023-05-25 13:58 | Outpatient (CLI) | payer OTHER, SELFPAY ==
[2023-05-25 19:22] LABS: Add Manual Diff / Slide Review NO; Basophils Absolute Auto 0 /uL (0-100); Eosinophils Absolute Auto 0 /uL (0-450); Hematocrit 40.5 % (36-46); Hemoglobin 13.8 g/dL (12.0-16.0); Lymphocytes Absolute Auto 1100 /uL (1100-4500); Lymphocytes Percent Auto 64.7 % (25-40); Mean Corpuscular HGB Conc 34.1 % (30-36); Mean Corpuscular Hemoglobin 31.2 PG (26-34); Mean Corpuscular Volume 91.5 fL (80-100); Monocytes Absolute Auto 200 /uL (0-900); Neutrophils Absolute Auto 400 /uL (1500-7000); Neutrophils Percent Auto 25.3 % (50-75); Platelet Count 123 X10^3/uL (150-400); Red Blood Cell Count 4.43 X10^6/uL (4.0-5.2); Red Cell Distribution Width 14.6 % (11.6-14.8)
[2023-05-25 19:35] LABS: White Blood Cell Count 1.8 X10^3/uL (4.5-11.0)
[2023-05-25 19:47] LABS: Alanine Aminotransferase 16 IU/L (<35); Albumin 4.3 g/dL (3.5-5.0); Albumin Globulin Ratio 1.5 (1.0-2.8); Alkaline Phosphatase 93 U/L (38-126); Bilirubin Total 0.7 mg/dL (0.2-1.3); Blood Urea Nitrogen 12 mg/dL (7-17); Calcium 9.6 mg/dL (8.4-10.2); Carbon Dioxide 26 mmol/L (22-32); Chloride 101 mmol/L (98-107); Estimated Glomerular Filt Rate > 60 mL/min (>60); Globulin 2.9 g/dL (1.7-4.1); Glucose 132 mg/dL (80-110); Potassium 4.2 mmol/L (3.4-5.1); Sodium 135 mmol/L (137-145); Total Protein 7.2 g/dL (6.3-8.2)
[2023-05-28 16:19] LABS: HEMOLYSIS 37 (0-50)
[2023-05-28 16:20] LABS: Aspartate Aminotransferase 39 IU/L (14-36)
== END ==
PROVIDERS: PCP Family Medicine; Visit Provider Internal Medicine Hematology
DX: D70.9 Neutropenia, unspecified (principal)
CPT/HCPCS: 80053; 85025

== ENCOUNTER → 2023-07-12 11:17 | Outpatient (CLI) | payer OTHER, SELFPAY ==
[2023-07-12 20:41] LABS: Hematocrit 39.1 % (36-46); Hemoglobin 13.4 g/dL (12.0-16.0); Mean Corpuscular HGB Conc 34.2 % (30-36); Mean Corpuscular Hemoglobin 31.6 PG (26-34); Mean Corpuscular Volume 92.3 fL (80-100); Platelet Count 123 X10^3/uL (150-400); Red Blood Cell Count 4.23 X10^6/uL (4.0-5.2); Red Cell Distribution Width 15.3 % (11.6-14.8)
[2023-07-12 20:44] LABS: Hemoglobin A1C% w Est Avg Glu 5.5 % (4.0-6.0)
[2023-07-12 20:59] LABS: Alanine Aminotransferase 15 IU/L (<35); Albumin Globulin Ratio 1.6 (1.0-2.8); Alkaline Phosphatase 90 U/L (38-126); Aspartate Aminotransferase 37 IU/L (14-36); BUN Creatinine Ratio 16.9 (6-22); Bilirubin Total 0.6 mg/dL (0.2-1.3); Blood Urea Nitrogen 10 mg/dL (7-17); Calcium 9.2 mg/dL (8.4-10.2); Carbon Dioxide 26 mmol/L (22-32); Chloride 104 mmol/L (98-107); Estimated Glomerular Filt Rate > 60 mL/min (>60); Globulin 2.5 g/dL (1.7-4.1); Glucose 74 mg/dL (80-110); HEMOLYSIS < 15 (0-50); Potassium 4.3 mmol/L (3.4-5.1); Sodium 139 mmol/L (137-145); Total Protein 6.5 g/dL (6.3-8.2)
[2023-07-12 21:01] LABS: Add Manual Diff / Slide Review YES
[2023-07-12 21:05] LABS: Neutrophils Absolute Manual 493 /uL (3000-5900); RBC Morphology Normal Morphology; Total Cells Counted 100
[2023-07-12 21:20] LABS: White Blood Cell Count 1.7 X10^3/uL (4.5-11.0)
== END ==
PROVIDERS: Internal Medicine Hematology; PCP Family Medicine; Visit Provider Family Medicine
DX: R73.9 Hyperglycemia, unspecified (principal); D70.9 Neutropenia, unspecified
CPT/HCPCS: 80053; 83036; 85007; 85025

== ENCOUNTER → 2023-07-21 12:51 | Outpatient (CLI) | payer OTHER, SELFPAY ==
[2023-07-21 19:15] LABS: C-Reactive Protein Quant 0.7 mg/dL (<1.0)
[2023-07-21 19:25] LABS: Erythrocyte Sedimentation Rate 8 MM/HR (0-20)
== END ==
PROVIDERS: PCP Family Medicine; Visit Provider Family Medicine
DX: L88 Pyoderma gangrenosum (principal); L97.909 Non-pressure chronic ulcer of unspecified part of unspecified lower leg with unspecified severity
CPT/HCPCS: 85651; 86140; 86376

== ENCOUNTER → 2023-10-20 11:22 | Outpatient (CLI) | payer MEDICARE, SELFPAY ==
[2023-10-20 19:28] LABS: Hematocrit 41.2 % (36-46); Hemoglobin 14.3 g/dL (12.0-16.0); Mean Corpuscular HGB Conc 34.6 % (30-36); Mean Corpuscular Hemoglobin 32.3 PG (26-34); Mean Corpuscular Volume 93.4 fL (80-100); Platelet Count 146 X10^3/uL (150-400); Red Blood Cell Count 4.41 X10^6/uL (4.0-5.2); Red Cell Distribution Width 15.1 % (11.6-14.8)
[2023-10-20 19:34] LABS: Add Manual Diff / Slide Review YES; White Blood Cell Count 1.5 X10^3/uL (4.5-11.0)
[2023-10-20 19:36] LABS: Alanine Aminotransferase 15 IU/L (<35); Albumin 4.8 g/dL (3.5-5.0); Albumin Globulin Ratio 1.7 (1.0-2.8); Alkaline Phosphatase 90 U/L (38-126); Aspartate Aminotransferase 44 IU/L (14-36); BUN Creatinine Ratio 25.4 (6-22); Bilirubin Total 0.9 mg/dL (0.2-1.3); Blood Urea Nitrogen 15 mg/dL (7-17); Calcium 9.7 mg/dL (8.4-10.2); Carbon Dioxide 24 mmol/L (22-32); Chloride 106 mmol/L (98-107); Estimated Glomerular Filt Rate > 60 mL/min (>60); Globulin 2.9 g/dL (1.7-4.1); Glucose 74 mg/dL (80-110); Sodium 139 mmol/L (137-145); Total Protein 7.7 g/dL (6.3-8.2)
[2023-10-20 19:37] LABS: HEMOLYSIS 89 (0-50)
[2023-10-20 19:38] LABS: Potassium 4.7 mmol/L (3.4-5.1)
[2023-10-20 19:59] LABS: Neutrophils Absolute Manual 45 /uL (3000-5900); Poikilocytosis 1+; Total Cells Counted 100
== END ==
PROVIDERS: PCP Family Medicine; Visit Provider Internal Medicine Hematology
DX: D70.9 Neutropenia, unspecified (principal)
CPT/HCPCS: 80053; 85007; 85025

== ENCOUNTER → 2023-11-15 11:03 | Outpatient (CLI) | payer MEDICARE, SELFPAY ==
[2023-11-15 20:10] LABS: Alanine Aminotransferase 15 IU/L (<35); Albumin 4.3 g/dL (3.5-5.0); Albumin Globulin Ratio 1.5 (1.0-2.8); Alkaline Phosphatase 115 U/L (38-126); Aspartate Aminotransferase 36 IU/L (14-36); BUN Creatinine Ratio 14.3 (6-22); Blood Urea Nitrogen 9 mg/dL (7-17); C-Reactive Protein Quant 0.7 mg/dL (<1.0); Calcium 8.9 mg/dL (8.4-10.2); Carbon Dioxide 27 mmol/L (22-32); Chloride 103 mmol/L (98-107); Estimated Glomerular Filt Rate > 60 mL/min (>60); Globulin 2.8 g/dL (1.7-4.1); Glucose 126 mg/dL (80-110); HEMOLYSIS < 15 (0-50); Lipase 75 U/L (23-300); Potassium 4.2 mmol/L (3.4-5.1); Sodium 138 mmol/L (137-145); Total Protein 7.1 g/dL (6.3-8.2)
[2023-11-15 21:33] LABS: Hematocrit 38.1 % (36-46); Hemoglobin 13.1 g/dL (12.0-16.0); Mean Corpuscular HGB Conc 34.2 % (30-36); Mean Corpuscular Hemoglobin 31.4 PG (26-34); Mean Corpuscular Volume 91.8 fL (80-100); Platelet Count 168 X10^3/uL (150-400); Red Blood Cell Count 4.16 X10^6/uL (4.0-5.2); Red Cell Distribution Width 14.6 % (11.6-14.8)
[2023-11-15 21:35] LABS: Add Manual Diff / Slide Review YES; White Blood Cell Count 1.1 X10^3/uL (4.5-11.0)
[2023-11-15 21:36] LABS: Erythrocyte Sedimentation Rate 15 MM/HR (0-20)
[2023-11-15 21:38] LABS: Burr Cells 2+; Neutrophils Absolute Manual 319 /uL (3000-5900); Total Cells Counted 100
== END ==
PROVIDERS: PCP Family Medicine; Visit Provider Family Medicine
DX: U07.1 COVID-19 (principal); D70.9 Neutropenia, unspecified; R05.9 Cough, unspecified; R10.9 Unspecified abdominal pain
CPT/HCPCS: 80053; 83690; 85007; 85025; 85651; 86140

== ENCOUNTER → 2024-01-14 11:00 | Outpatient (CLI) | payer MEDICARE, SELFPAY ==
[2024-01-14 18:51] LABS: Hematocrit 41.3 % (36-46); Hemoglobin 14.4 g/dL (12.0-16.0); Mean Corpuscular HGB Conc 34.8 % (30-36); Mean Corpuscular Hemoglobin 32.4 PG (26-34); Mean Corpuscular Volume 92.9 fL (80-100); Platelet Count 156 X10^3/uL (150-400); Red Blood Cell Count 4.45 X10^6/uL (4.0-5.2); Red Cell Distribution Width 15.4 % (11.6-14.8)
[2024-01-14 18:55] LABS: Alanine Aminotransferase 12 IU/L (<35); Albumin 4.6 g/dL (3.5-5.0); Albumin Globulin Ratio 1.6 (1.0-2.8); Alkaline Phosphatase 97 U/L (38-126); Aspartate Aminotransferase 35 IU/L (14-36); BUN Creatinine Ratio 16.4 (6-22); Bilirubin Total 0.7 mg/dL (0.2-1.3); Blood Urea Nitrogen 10 mg/dL (7-17); Calcium 9.8 mg/dL (8.4-10.2); Carbon Dioxide 26 mmol/L (22-32); Chloride 102 mmol/L (98-107); Estimated Glomerular Filt Rate > 60 mL/min (>60); Globulin 2.9 g/dL (1.7-4.1); Glucose 72 mg/dL (80-110); HEMOLYSIS 15 (0-50); Potassium 4.4 mmol/L (3.4-5.1); Sodium 138 mmol/L (137-145); Total Protein 7.5 g/dL (6.3-8.2)
[2024-01-14 19:09] LABS: Add Manual Diff / Slide Review YES; White Blood Cell Count 1.2 X10^3/uL (4.5-11.0)
[2024-01-14 19:36] LABS: Neutrophils Absolute Manual 276 /uL (3000-5900); Total Cells Counted 100
[2024-01-14 19:37] LABS: RBC Morphology Normal Morphology
== END ==
PROVIDERS: PCP Family Medicine; Referring Provider Internal Medicine Hematology; Visit Provider Internal Medicine Hematology
DX: D70.9 Neutropenia, unspecified (principal)
CPT/HCPCS: 80053; 85007; 85025; 86038

== ENCOUNTER → 2024-04-11 12:02 | Outpatient (CLI) | payer MEDICARE, SELFPAY ==
[2024-04-11 18:57] LABS: Hematocrit 40.7 % (36-46); Hemoglobin 13.9 g/dL (12.0-16.0); Mean Corpuscular HGB Conc 34.1 % (30-36); Mean Corpuscular Hemoglobin 31.5 PG (26-34); Mean Corpuscular Volume 92.5 fL (80-100); Platelet Count 136 X10^3/uL (150-400); Red Cell Distribution Width 14.3 % (11.6-14.8)
[2024-04-11 19:08] LABS: Add Manual Diff / Slide Review YES; White Blood Cell Count 1.6 X10^3/uL (4.5-11.0)
[2024-04-11 19:26] LABS: Neutrophils Absolute Manual 400 /uL (3000-5900); RBC Morphology Normal Morphology; Total Cells Counted 100
== END ==
PROVIDERS: PCP Family Medicine; Visit Provider Internal Medicine Hematology
DX: D70.9 Neutropenia, unspecified (principal)
CPT/HCPCS: 85007; 85025

== ENCOUNTER → 2024-05-01 11:38 | Outpatient (CLI) | payer MEDICARE, SELFPAY ==
[2024-05-01 19:12] LABS: Alanine Aminotransferase 19 IU/L (<35); Albumin 4.3 g/dL (3.5-5.0); Albumin Globulin Ratio 1.4 (1.0-2.8); Alkaline Phosphatase 119 U/L (38-126); Amylase 60 U/L (30-110); Aspartate Aminotransferase 42 IU/L (14-36); Bilirubin Total 0.5 mg/dL (0.2-1.3); Blood Urea Nitrogen 12 mg/dL (7-17); Calcium 9.4 mg/dL (8.4-10.2); Carbon Dioxide 30 mmol/L (22-32); Chloride 104 mmol/L (98-107); Estimated Glomerular Filt Rate > 60 mL/min (>60); Glucose 74 mg/dL (80-110); HEMOLYSIS < 15 (0-50); Lipase 67 U/L (23-300); Potassium 4.3 mmol/L (3.4-5.1); Sodium 138 mmol/L (137-145); Total Protein 7.3 g/dL (6.3-8.2)
[2024-05-01 19:27] LABS: Hematocrit 40.2 % (36-46); Hemoglobin 13.6 g/dL (12.0-16.0); Mean Corpuscular HGB Conc 33.9 % (30-36); Mean Corpuscular Hemoglobin 31.5 PG (26-34); Mean Corpuscular Volume 92.9 fL (80-100); Platelet Count 185 X10^3/uL (150-400); Red Blood Cell Count 4.33 X10^6/uL (4.0-5.2); Red Cell Distribution Width 14.6 % (11.6-14.8)
[2024-05-01 19:39] LABS: Add Manual Diff / Slide Review YES; White Blood Cell Count 1.8 X10^3/uL (4.5-11.0)
[2024-05-01 19:55] LABS: Neutrophils Absolute Manual 450 /uL (3000-5900); RBC Morphology Normal Morphology; Total Cells Counted 100
== END ==
PROVIDERS: PCP Family Medicine; Visit Provider Family Medicine
DX: R10.9 Unspecified abdominal pain (principal); R11.2 Nausea with vomiting, unspecified
CPT/HCPCS: 80053; 82150; 83690; 85007; 85025

== ENCOUNTER → 2024-07-06 11:24 | Outpatient (CLI) | payer MEDICARE, SELFPAY ==
--- NOTE | 2024-07-06 11:26 | DI.CT.S_ITS ---
PROCEDURE: CT CERVICAL SPINE WO CON INDICATIONS: fall 2/5 . on ice. TECHNIQUE: Noncontrast 3 mm thick sections acquired from the skull base to the T4 level. Sagittal and coronal reformats were then constructed. For radiation dose reduction, the following was used: automated exposure control, adjustment of mA and/or kV according to patient size. COMPARISON: [facility], CT, CT HEAD/BRAIN WO CON, 07/06/2024, 11:31. FINDINGS: Image quality: Excellent. Bones: No fractures or dislocations. Visualized superior ribs are intact. Moderately severe lower cervical degenerative disc disease. Soft tissues: Prevertebral soft tissues are normal in thickness. No paravertebral hematomas. No apical pneumothoraces. IMPRESSION: No displaced fracture or traumatic subluxation. Dictated by: Abelino Pelayo M.D. on 07/06/2024 at 11:53 Approved by: Abelino Pelayo M.D. on 07/06/2024 at 11:54
--- NOTE | 2024-07-06 11:26 | DI.CT.S_ITS ---
PROCEDURE: CT HEAD/BRAIN WO CON INDICATIONS: fall 2/5 on ice, hit head. on Xarelto TECHNIQUE: Noncontrast 4.5 mm thick angled axial sections acquired from the foramen magnum to the vertex, with coronal and sagittal reformats. For radiation dose reduction, the following was used: automated exposure control, adjustment of mA and/or kV according to patient size. COMPARISON: None. FINDINGS: Image quality: Diagnostic. CSF spaces: Basal cisterns are patent. No extra-axial fluid collections. Ventricles are normal in size and shape. Brain: No midline shift. No intracranial masses or hemorrhage. Wilson-white matter interface is normal. Skull and face: Calvarium and visualized facial bones are intact, without suspicious lesions. Sinuses: Visualized sinuses and mastoids are clear. IMPRESSION: No acute intracranial pathology. Dictated by: Abelino Pelayo M.D. on 07/06/2024 at 11:53 Approved by: Abelino Pelayo M.D. on 07/06/2024 at 11:53
== END ==
PROVIDERS: PCP Family Medicine; Referring Provider Family Medicine; Visit Provider Family Medicine
DX: M48.02 Spinal stenosis, cervical region (principal); S09.90XA Unspecified injury of head, initial encounter; M54.2 Cervicalgia; M50.30 Other cervical disc degeneration, unspecified cervical region; Z79.01 Long term (current) use of anticoagulants; W19.XXXA Unspecified fall, initial encounter
CPT/HCPCS: 70450; 72125

== ENCOUNTER → 2024-07-07 08:46 | Outpatient (CLI) | payer MEDICARE, SELFPAY ==
[2024-07-07 19:07] LABS: Blood Urea Nitrogen 18 mg/dL (7-17); Calcium 9.6 mg/dL (8.4-10.2); Carbon Dioxide 27 mmol/L (22-32); Chloride 103 mmol/L (98-107); Estimated Glomerular Filt Rate > 60 mL/min (>60); Glucose 113 mg/dL (80-110); HEMOLYSIS 24 (0-50); Potassium 4.6 mmol/L (3.4-5.1); Sodium 139 mmol/L (137-145)
[2024-07-07 19:42] LABS: Hematocrit 41.8 % (36-46); Hemoglobin 14.4 g/dL (12.0-16.0); Mean Corpuscular HGB Conc 34.5 % (30-36); Mean Corpuscular Hemoglobin 31.8 PG (26-34); Mean Corpuscular Volume 92.3 fL (80-100); Platelet Count 204 X10^3/uL (150-400); Red Blood Cell Count 4.52 X10^6/uL (4.0-5.2); Red Cell Distribution Width 14.3 % (11.6-14.8)
[2024-07-07 20:02] LABS: White Blood Cell Count 1.5 X10^3/uL (4.5-11.0)
[2024-07-07 20:16] LABS: Neutrophils Absolute Manual 540 /uL (3000-5900); RBC Morphology Normal Morphology; Total Cells Counted 100
== END ==
PROVIDERS: PCP Family Medicine; Visit Provider Family Medicine
DX: R10.9 Unspecified abdominal pain (principal); Z79.01 Long term (current) use of anticoagulants; S09.90XA Unspecified injury of head, initial encounter; D69.6 Thrombocytopenia, unspecified; D70.9 Neutropenia, unspecified
CPT/HCPCS: 80048; 85025

== ENCOUNTER → 2024-07-24 14:53 | Outpatient (CLI) | payer MEDICARE, SELFPAY | PROVIDERS: PCP Family Medicine; Visit Provider Physician Assistant | DX: J02.9 Acute pharyngitis, unspecified (principal) | CPT/HCPCS: 87070 ==

== ENCOUNTER → 2024-09-06 11:33 | Outpatient (CLI) | payer MEDICARE, SELFPAY ==
[2024-09-06 18:52] LABS: Add Manual Diff / Slide Review NO; Basophils Absolute Auto 0 /uL (0-100); Basophils Percent Auto 1.3 % (0-2); Eosinophils Absolute Auto 0 /uL (0-450); Eosinophils Percent Auto 0.1 % (2-4); Hemoglobin 13.4 g/dL (12.0-16.0); Lymphocytes Absolute Auto 700 /uL (1100-4500); Lymphocytes Percent Auto 36.3 % (25-40); Mean Corpuscular HGB Conc 34.5 % (30-36); Mean Corpuscular Hemoglobin 31.9 PG (26-34); Mean Corpuscular Volume 92.4 fL (80-100); Monocytes Absolute Auto 400 /uL (0-900); Monocytes Percent Auto 19.5 % (3-14); Neutrophils Absolute Auto 900 /uL (1500-7000); Neutrophils Percent Auto 42.8 % (50-75); Platelet Count 201 X10^3/uL (150-400); Red Blood Cell Count 4.22 X10^6/uL (4.0-5.2); Red Cell Distribution Width 14.6 % (11.6-14.8)
[2024-09-06 18:56] LABS: C-Reactive Protein Quant 1.3 mg/dL (<1.0); Estimated Glomerular Filt Rate > 60 mL/min (>60)
[2024-09-06 18:58] LABS: Erythrocyte Sedimentation Rate 23 MM/HR (0-20)
[2024-09-06 19:10] LABS: Vitamin D 25 Hydroxy (D3) 31.8 ng/mL (30.0-100.0)
[2024-09-06 19:33] LABS: Ferritin 55 ng/mL (11-264)
[2024-09-06 19:34] LABS: Thyroid Stimulating Hormone 1.03 uIU/mL (0.47-4.68)
[2024-09-06 19:53] LABS: Vitamin B12 942 pg/mL (239-931)
== END ==
PROVIDERS: PCP Family Medicine; Visit Provider Internal Medicine Hematology
DX: D70.9 Neutropenia, unspecified (principal); R53.83 Other fatigue; E56.9 Vitamin deficiency, unspecified; E27.40 Unspecified adrenocortical insufficiency; L88 Pyoderma gangrenosum; M79.671 Pain in right foot
CPT/HCPCS: 82306; 82565; 82607; 82728; 84443; 85025; 85651; 86140

== ENCOUNTER → 2024-09-12 11:09 | Outpatient (CLI) | payer MEDICARE, SELFPAY ==
--- NOTE | 2024-09-12 11:10 | DI.CT.S_ITS ---
PROCEDURE: CT ABDOMEN PELVIS W CON INDICATIONS: recurrent LLQ pain, nausea, anorexia TECHNIQUE: After the administration of intravenous contrast, axial sections acquired from the lung bases to the pubic symphysis. Coronal and sagittal reformats were performed. For radiation dose reduction, the following was used: automated exposure control, adjustment of mA and/or kV according to patient size. COMPARISON: [facility], CT, CT ABDOMEN PELVIS W CON, 01/20/2023, 13:31. FINDINGS: Image quality: Diagnostic. Lower Chest: No significant findings. ABDOMEN: Liver: No solid mass. Gallbladder: Surgically absent. Biliary ducts: No biliary dilation. Pancreas: No ductal dilation. Spleen: Size is within normal limits. Adrenal Glands: No adrenal nodules. Kidneys and Ureters: No hydronephrosis. No solid mass. No complex renal cystic lesion which requires follow up. Stomach and Bowel: Normal colonic caliber, without significant wall thickening. Diverticulosis is present. There is pericolonic fat stranding with pelvis with wall thickening of the sigmoid colon concerning for diverticulitis. There is a focus of fat adjacent to the sigmoid colon (3/54) with surrounding inflammation, may represent epiploic appendagitis. Normal appendix. Peritoneum: No abnormal intraperitoneal fluid. No free air. Ventral Wall: No significant ventral hernia. Abdominal Nodes: No retroperitoneal or mesenteric adenopathy by size criteria. Vessels: Aorta and inferior vena cava are normal in size. PELVIS: Pelvic Organs: Unremarkable. Bladder: No bladder wall thickening, accounting for underdistention. Pelvic Nodes: No enlarged lymph nodes. Miscellaneous: No inguinal hernias are seen. Bones: No aggressive osseous abnormality. Multilevel degenerative changes of the spine. IMPRESSION: Diverticulosis with fat stranding in the pelvis and some wall thickening of the sigmoid colon, concerning for acute diverticulitis. Epiploic appendagitis is also in the differential. No extraluminal gas or organized fluid collections. Dictated by: Souleymane Hurst M.D. on 09/12/2024 at 13:33 Approved by: Souleymane Hurst M.D. on 09/12/2024 at 13:37
== END ==
PROVIDERS: PCP Family Medicine; Referring Provider Family Medicine; Visit Provider Family Medicine
DX: K57.30 Diverticulosis of large intestine without perforation or abscess without bleeding (principal); S09.90XA Unspecified injury of head, initial encounter; R10.9 Unspecified abdominal pain; Z79.01 Long term (current) use of anticoagulants; Z90.49 Acquired absence of other specified parts of digestive tract
CPT/HCPCS: 74177; Q9967

== ENCOUNTER → 2025-01-31 11:33 | Outpatient (CLI) | payer MEDICARE, SELFPAY ==
[2025-01-31 20:34] LABS: Hematocrit 40.3 % (36-46); Hemoglobin 13.7 g/dL (12.0-16.0); Mean Corpuscular HGB Conc 33.9 % (30-36); Mean Corpuscular Hemoglobin 31.6 PG (26-34); Mean Corpuscular Volume 93.1 fL (80-100); Platelet Count 133 X10^3/uL (150-400)
[2025-01-31 20:45] LABS: Add Manual Diff / Slide Review YES
[2025-01-31 21:12] LABS: Band Neutrophils Percent 5.0 % (3-7); Lymphocytes Percent Manual 47.0 % (25-45); Monocytes Percent Manual 19.0 % (2-11); Neutrophils Absolute Manual 510 /uL (3000-5900); RBC Morphology Normal Morphology; Segmented Neutrophils Percent 29.0 % (38-70); Total Cells Counted 100
== END ==
PROVIDERS: PCP Family Medicine; Visit Provider Internal Medicine Hematology
DX: D70.9 Neutropenia, unspecified (principal)
CPT/HCPCS: 85007; 85025

== ENCOUNTER → 2025-03-06 11:24 | Outpatient (CLI) | payer MEDICARE, SELFPAY ==
[2025-03-06 19:19] LABS: Alanine Aminotransferase 12 IU/L (<35); Albumin 4.6 g/dL (3.5-5.0); Albumin Globulin Ratio 1.6 (1.0-2.8); Alkaline Phosphatase 96 U/L (38-126); Blood Urea Nitrogen 12 mg/dL (7-17); Calcium 9.4 mg/dL (8.4-10.2); Carbon Dioxide 27 mmol/L (22-32); Chloride 102 mmol/L (98-107); Cholesterol 138 mg/dL (140-199); Estimated Glomerular Filt Rate > 60 mL/min (>60); Globulin 2.9 g/dL (1.7-4.1); Glucose 137 mg/dL (70-99); HDL Cholesterol 82 mg/dL (40-60); HEMOLYSIS < 15 (0-50); Potassium 4.5 mmol/L (3.4-5.1); Sodium 138 mmol/L (137-145); Total Protein 7.5 g/dL (6.3-8.2); Triglycerides 42 mg/dL (35-150)
== END ==
PROVIDERS: PCP Family Medicine; Visit Provider Family Medicine
DX: D70.9 Neutropenia, unspecified (principal); K74.69 Other cirrhosis of liver; Z13.6 Encounter for screening for cardiovascular disorders
CPT/HCPCS: 80053; 80061

== ENCOUNTER → 2025-03-28 13:55 | Outpatient (CLI) | payer MEDICARE, SELFPAY ==
[2025-03-28 19:31] LABS: Hemoglobin A1C% w Est Avg Glu 5.6 % (4.0-6.0)
== END ==
PROVIDERS: PCP Family Medicine; Visit Provider Family Medicine
DX: R73.9 Hyperglycemia, unspecified (principal)
CPT/HCPCS: 83036